=== PATIENT | female | born 1940 | race Caucasian/White ===

== ENCOUNTER 2017-02-25 20:51 | Inpatient (IN) | payer MEDICARE, OTHER ==
[~2017-02-25] VITALS: Ht 162.6 cm; Wt 92.5 kg
[2017-02-25] MEDS: 0.9% Sodium Chloride 1,000 ML IV SCH (04:30)
[~2017-02-25 20:51] MED LIST: Lactated Ringer's 1,000 ML IV ONE
[2017-02-25 21:59] VITALS: BP 110/47; PULSE 101; RESP 18; O2SAT 95
[2017-02-25] MEDS ORDERED: SYMINH INHALATION (22:36)
[2017-02-25] MEDS ORDERED: TRIA16.911 NS (22:36)
[2017-02-25] MEDS ORDERED: OMEP20CA11 PO (22:36)
[2017-02-25] MEDS ORDERED: CETI5TAB28 AD (22:36)
[2017-02-25] MEDS ORDERED: LOSA100T29 PO (22:36)
[2017-02-25] MEDS ORDERED: THYR30TA2 PO (22:36)
[2017-02-25] MEDS ORDERED: CHOL5000 PO (22:36)
[2017-02-25] MEDS ORDERED: ASPI-973 PO (22:36)
[2017-02-25] MEDS ORDERED: VITA150T PO (22:36)
[2017-02-25 22:45] VITALS: PULSE 94
[2017-02-25] MEDS ORDERED: Ondansetron 2 mg/mL 2 mL Inj IVPUSH PRN (23:15)
[2017-02-25] MEDS ORDERED: Alum-Mag Hydrox-Simeth 30 mL Suspension PO PRN (23:15)
[2017-02-25] MEDS ORDERED: Polyethylene Glycol (PEG) 17 Gm Powder PO PRN (23:15)
[2017-02-25] MEDS: Sodium Chloride LOK Flush 10 mL Syringe IVFLUSH SCH (23:24)
[2017-02-25] MEDS ORDERED: 0.9% Sodium Chloride 500 ML IV ONE (23:25)
[2017-02-25] MEDS ORDERED: Piperacillin-Tazo 3.375 Gm Inj 3.375 GM in Dextrose 5% Minibag Plus 50 ML IV ONE (23:30)
--- NOTE | 2017-02-25 23:31 | PCM.CONSUR ---
Subjective Date of Service: Feb 25, 2017 History of Present Illness Pt is a 76 y/o woman seen after transfr from [facility] in [place] for L UVJ stone in setting of presumed urosepsis. She had had sever L sided abdominal pain with anorexia and nausea w/o f/c. Was seen in the ER there afebrile initially with WBC 11, CT abd pelvis showed no other stones but a 3-4mm L UVJ region stone with prox hydroureteronephosis and some perinephric and ureteral stranding. Pt was to be discharged but began with shaking chills and fever o 102, as well as marked tachycardia. She does not remember this episode. Since arrival she is afebrile and oriented, normotensive with mildly variable tachycardia She was transfered for further treatment including likely L JJ stent placemnt. Zosyn ordered here Reason for Consultation I was asked by Dr Karimi for evaluation and treament recommendations regarding a 76 yo woman with L UVJ stone, hydronephosis and presumed urosepsis Allergy Allergies: Coded Allergies: phenobarbital (Verified Adverse Reaction, Intermediate, 02/25/17) "OPPOSITE REACTION- MAKES ME HYPER" TAPE (Verified Adverse Reaction, Unknown, 02/25/17) Medications Hypertension Medication: Yes Aspirin (Aspirin) 81 Mg Tablet 81 MG PO DAILY (Reported) Budesonide/Formoterol 160-4.5 mcg Inh (Symbicort 160-4.5 mcg Inh) 120 Puff Inhaler 1 PUFF INHALATION BID (Reported) Cetirizine (Cetirizine) 5 Mg Tablet 10 MG AD DAILY (Reported) Cholecalciferol (Vitamin D3) (Vitamin D3) 5,000 Unit Capsule 5,000 UNIT PO DAILYWL (Reported) Losartan Potassium (Losartan Potassium) 100 Mg Tablet 100 MG PO BID (Reported) Omeprazole (Omeprazole) 20 Mg Capsule.dr 20 MG PO BID (Reported) Thyroid,Pork ([place] Thyroid) 30 Mg Tablet 30 MG PO DAILY (Reported) Triamcinolone Acetonide (Triamcinolone Acetonide) 55 Mcg [place] 16.9 ML NS BID PRN PRN as needed (Reported) Vitamin B Complex & Vit C No.4 (Super B Complex) 150 Mg Tablet Unknown Dose PO DAILY (Reported) Last Taken: UNKNOWN on Unknown Date & Time Past Surgical History Surgeries: Yes (galbladder, hysterctomy) Patient/Family Past Surgical: Positive for:: Accept Blood Products?, Anesthesia Reactions (nausea), Denies:: Blood Transfusions Social History Hx Alcohol Use: Yes Hx Substance Use: No Hx Tobacco Use: No PMH HEENT History History of ENT Problems?: No HEENT History: Denies:: Abnormal Airway Cardiovascular History History of Heart Problems?: Yes Cardiovascular History: Positive for:: Edema Hypertension Denies:: Cardiac Surgery Chest Pain Congestive Heart Failure Heart Murmur Irregular Heartbeat Pacemaker Thrombophlebitis Respiratory History of Respiratory Problem: Yes Respiratory History: Positive for:: Asthma Dyspnea Pneumonia Denies:: COPD Chest Surgery Emphysema Hemoptysis Tuberculosis Neurological History Hx Neurologic Problems?: Yes Neurological History: Positive for:: CVA (TIA) Denies:: Alzheimer's Disease Dementia Dizziness Headaches Parkinson's Disease Seizures Gastrointestinal History HX of GI Problems?: Yes Gastrointestinal History: Positive for:: Gastroesphageal Reflux Heartburn Denies:: Diverticulitis Gastrointestinal Bleeding Hepatitis Hiatal Hernia Rectal Bleeding Other GI Pertinent History: galbladder removed Genitourinary History Hx of Gu Problems?: Yes Genitourinary History: Positive for: Kidney Stones (current) Denies: Urinary Tract Infection Female/Male History Reproductive History Female: Denies: Currently ? Endometriosis Pelvic Inflammatory DX Problems with Breasts? Musculoskeletal History Hx Musculoskeletal Problems?: Yes Musculoskeletal History: Positive for:: Back Injury (lower back pain, herniated disc in neck) Denies:: Joint Replacement Musculoskeletal Trauma Psycho Social History Hx of Psycho/Social Problems?: No Other History Other History: Positive for:: Hospitalization Thyroid Disease Denies:: Cancer Diabetes: No Social History Hx Alcohol Use: NoHx Substance Use: No Objective Exam Vital Signs & I/O Vital Sign- Last 8 Hours Date Time Temp Pulse Resp B/P Pulse Ox O2 Delivery O2 Flow Rate FiO2 02/25/17 23:12 Supplement Oxygen 02/25/17 21:59 36.7 101 18 110/47 95 Nasal Cannula 1.00 Lab & Micro Results as above Review of Systems: Constitutional: Negative, except as otherwise mentioned in the history above. Ophthalmologic: Negative, except as otherwise mentioned in the history above. Cardiovascular: Negative, except as otherwise mentioned in the history above. Respiratory: Negative, except as otherwise mentioned in the history above. Gastrointestinal: Negative, except as otherwise mentioned in the history above. Genitourinary: Negative, except as otherwise mentioned in the history above. Musculoskeletal: Negative, except as otherwise mentioned in the history above. Neurological: Negative, except as otherwise mentioned in the history above. Psychiatric: Negative, except as otherwise mentioned in the history above. Hematologic/Lymphatic: Negative, except as otherwise mentioned in the history above. Allergic/Immunologic: Negative, except as otherwise mentioned in the history above. H&P Surgical Exam Exam General: Alert, Cooperative, Mild Distress HEENT: Within normal limits & unremarkable (ncat, no scleral icterus, dry mucous membranes) Neck: Within normal limits & unremarkable (midline trachea, no scars) Respiratory: Clear to Auscultation (normal chest excursion, no audible ronchi or wheezes, no tachypnea, +NC 02) Cardiac: Other (reg rhythm, tachy mild, some dep edema, warm extremities) Abdomen: Soft (L sided TTP, no rebound, +cholecystectomy scars, no masses, obese) Breasts: Not Indicated Musculoskeletal: no gross limb defects Assessment & Plan Assessment L UVJ stone/prox HUN with pending cx from [facility], mild leukocytocis and presumed urosepsis Plan: Discussed with patient at length recommendations. risk/benefit of options discussed. stent discussed and recommended Small distal stone- MAY have passed, but given situation of brief decompensation at [facility] for presumed urosepsis would recommend stenting to ensure decompression of L renal unit if purulence or obstructed urine encountered, would re-cx from OR may expect urinary urgency/frequency with stent in place may expect some hematuria may have some flank discomfort with voiding due to reflux pressure from stent Pyridium up to tid may be helpful OAB medications such as Oxybutynin as well if needed Recommend medical supportive care with antibiotic choice per hospitalist service to cover at least presumed urine/bacterial source Stents remain at least 7-10 days to allow for passive ureteral dilation and UTI treatment before stone manipulation is undertaken for more proximal stones Findings at OR may dictate other plan if stone is seen in bladder (as passed) Will follow with you and arrange f/u plans prior to patient's d/c Sari Sylvester MD Feb 25, 2017 23:31
--- NOTE | 2017-02-25 23:39 | PCM.HPMED ---
Subjective Date of Service Feb 25, 2017 Primary Provider: Admitting Physician: Charmaine Karimi DO Primary Care Physician: Gregoria Olmstead MD Attending Physician: Charmaine Karimi DO Chief Complaint: Left lower quadrant pain History of Present Illness: Alexia Jade is 76-year-old female with past medical history significant for hypertension, hypothyroid, and asthma who was transferred from [facility] due for possible need for surgical intervention for left UVJ stone seen on CT. Patient presents to [facility] this morning due to constant, sharp pain in her left lower quadrant worse with movement. She states the pain came on suddenly and she could not reposition herself to alleviate the pain. The pain radiates to her groin but not to the back or right side. She denies any dysuria , hematuria, or difficulty voiding. She denies history of kidney stones. Prior to this morning she was in her usual state of health. She denies any recent fever, chills, nausea, vomiting, change in bowel habits, shortness of breath, chest pain, or headache. No recent antibiotic use. Patient last ate yesterday night. At [facility] medical management was initially attempted but when the patient spiked a fever 102F with a heart rate of 130 and O2 sats dropping to 80 % there was concern that she would need surgical intervention and she was transferred. Prior to arrival at [facility] she had blood cultures 2 drawn and antibiotics, Zosyn, given. Patient's white blood cell count at [facility] was 11.1. On presentation to [facility] vitals were temp 36.7, pulse 101, respiratory rate 18, blood pressure 110/47, satting 95% on 1 L nasal cannula. Patient is on her way to surgery for urethral stent placement by Dr. Sylvester. Review of Systems: Comprehensive review of systems was conducted with the patient and found to be negative except as noted above in HPI. Allergies Coded Allergies: phenobarbital (Verified Adverse Reaction, Intermediate, 02/25/17) "OPPOSITE REACTION- MAKES ME HYPER" TAPE (Verified Adverse Reaction, Unknown, 02/25/17) Home Medications Losartan 100 mg daily [place] Thyroid 30 mg daily Omeprazole 20 mg twice a day PMH Hypothyroidism Asthma GERD Hypertension History of TIA Surgical History Hysterectomy Cholecystectomy Tonsillectomy Appendectomy Family History Father - stroke Mother - CHF Social History Occupation: retired hairdresser Hx Alcohol Use: Yes (occasionally) Hx Substance Use: No Hx Tobacco Use: Yes Smoking Status: Former Smoker (quit over 30 years ago and only smoked one pack per week for 15 years) Years of Smokin Living Arrangement: with Family Exam Vital Signs Vital Sign - Last Date Time Temp Pulse Resp B/P Pulse Ox O2 Delivery O2 Flow Rate FiO2 02/25/17 23:12 Supplement Oxygen 02/25/17 21:59 36.7 101 18 110/47 95 1.00 Exam General: Mild distress, well-developed, well-nourished, appropriately interactive HEENT: Normocephalic, atraumatic. External ears without defect. Pupils equal, round, and reactive to light and accommodation. Anicteric sclerae, moist conjunctivae, and no lid lag. Oropharynx free of erythema and cobble stoning with moist mucosa. Neck: Supple with full range of motion. Cardiovascular: Regular rate and rhythm with no murmurs, rubs, or gallops appreciated Pulmonary: Clear to auscultation bilaterally with no crackles, wheezes, or rhonchi. Normal respiratory effort with no use of accessory muscles. Abdomen: Bowel tones present. Pain with palpation left lower quadrant but otherwise soft and nontender. Extremities: Ecchymotic area on her right forearm. Trace lower extremity edema. Skin: Normal temperature, turgor, and texture; no rash, ulcers, or subcutaneous nodules appreciated. Neurological: Cranial nerves grossly intact. Normal muscle strength, tone, and bulk. Reflexes, coordination, and sensory function within normal limits. No known gait impairment. Psychiatric: Normal mood and affect. Alert and oriented to person, place, and time. Lab and Diagnostics Microbiology 2 sets of blood cultures drawn at [facility] X-Rays, CTs and MRIs CT at [facility] showed left hydronephrosis and UVJ stone. Assessment & Plan Alexia Jade is 76-year-old female with past medical history significant for hypertension, hypothyroid, and asthma who was transferred from [facility] due for possible need for surgical intervention for left UVJ stone seen on CT. Hydronephrosis secondary to UVJ stone, present on admission, active. - Patient currently in surgery for urethral stent placement by Dr. Sylvester. - Zosyn given at [facility] and continued. - Morphine when necessary pain. - Repeat CBC, CMP, and UA at our facility pending. WBC at [facility] was 11.1. Sepsis, present on admission, active. - Criteria met at [facility] include: Temperature 100.2F, heart rate 1:30, and O2 sats 80% (Temperature greater than 38 her less than 36, heart rate is 90, respiratory rate greater than 20, PaCO2 less than 32, white blood cell count greater than 12,000 or less than 4000 or greater than 10% bands) - Source likely urological. - MAP 55-60 on presentation to [facility] and have improved with fluids. - Empiric antibiotics started including Zosyn. One dose given at [facility]. - Blood cultures obtained at [facility] prior to antibiotics. Urine cultures obtained and results pending. - Close hemodynamic monitoring. - Supplemental oxygen as needed. Stable chronic conditions Hypertension - Held home medication due to current hypotension - losartan 100 mg daily Asthma - Continue home regimen - Symbicort daily - Duonebs and albuterol when necessary Hypothyroidism - Continue home regimen - [place] Thyroid 30 mg GERD - Continue home regimen - omeprazole 20 mg twice a day PRN Medications - Acetaminophen as needed for mild pain/fever/headache - Bowel regimen as needed - Antiemetic as needed Patient is admitted under inpatient status with expected length of stay greater than 2 midnights due to severity of presenting symptoms, risk of adverse event, and complexity of treatment plan. Pain Evaluation: Adequate Pain Control GI Prophylaxis: Proton Pump Inhibitor VTE Prophylaxis: Sub-Q Heparin (Unfractionated) Resuscitation Status: CPR: Attempt Resuscitation (patient has living will - daughter has a copy) Attending Statement The patient was seen and examined together with house staff on 02/26/2017 and I agree with the history, exam and plan as outlined in the note above. ILAN LUA DO Feb 25, 2017 23:39 Charmaine Karimi DO Feb 26, 2017 05:05
--- NOTE | 2017-02-25 23:41 | NUR ---
Admit/ to OR Pt admitted to PCC room 2012. Admit and med rec completed via pt interview. Pt c/o 3/10 lower left quadrant pain which is tolerable with rest. Tele SR 90s. BP slightly hypotensive. 500 cc NS bolus ordered - bolus initiated however OR staff to room shortly after to bring pt to OR. Pt left floor @2335.
[2017-02-25 23:49] LABS: Mean Corpuscular Hemoglobin 29.8 pg (27.0-35.0); Platelet Count 85 bil/L (150-400)
[2017-02-25] MEDS ORDERED: Albuterol 2.5 mg/3 mL Inhalation Solution NEB PRN (23:50)
[2017-02-25] MEDS ORDERED: Albuterol-Ipratropium 3 mL Inhalation Solution NEB PRN (23:50)
[2017-02-26] VITALS (20 sets, daily range): BP systolic 90–145; BP diastolic 45–90; PULSE 60–124; RESP 13–24; O2SAT 93–100
[2017-02-26 00:23] LABS: BASOPHILS % (AUTO) 1 % (0-3); EOSINOPHILS % (AUTO) 2 % (0-5); MONOCYTES % (AUTO) 7 % (4-12); NEUTROPHILS % (AUTO) 80 % (40-74)
[2017-02-26 00:30] LABS: APPEARANCE,URINE CLEAR (CLEAR,HAZY); COLOR,URINE YELLOW (YELLOW); OCCULT BLOOD,URINE LARGE (NEGATIVE); UROBILINOGEN,URINE NORMAL (NORMAL)
[2017-02-26 00:34] LABS: Magnesium 1.4 mg/dL (1.6-2.6); Phosphorus 1.6 mg/dL (2.5-4.9); TROPONIN T 0.01 ug/L (0.0-0.011)
[2017-02-26] MEDS ORDERED: Lactated Ringer's 1,000 ML IV ONE (00:43)
--- NOTE | 2017-02-26 00:51 | PCM.SURGPO ---
Immediate Operative Note Date of Surgery: Feb 26, 2017 Pre Operative Diagnosis L ureteral stone, obstructing urosepsis Post Operative Diagnosis same Procedure L JJ stent placement Urine sent post de-obstruction for culture from bladder Surgeon and Rn Access Surgeon: Higinio Assistants: None Findings Contrast from [facility] still visible in obstructed urine- to level of bladder with UVJ stone (too small to see on fluoro) Stone palpable with advancement of stent/ureteral catheter Urine post deobstruction with debris c/w obstructing process Urine sent for culture after deobstruction Complications There were no periprocedural complications identified. Surgical Specimen Removed: Yes (urine for C&S post de-obstruction) Specimen sent to Pathology: No Surgical Specimen description: urine for c&s post deobstruction Anesthetic Administered: GA Grafts, Implants: Grafts-See Implant Record Output, Estimated Blood Loss: 10 Blood Admin during surgery: No Sari Sylvester MD Feb 26, 2017 00:51
[2017-02-26] MEDS ORDERED: Lactated Ringer's 500 ML IV PRN (01:16)
[2017-02-26] MEDS ORDERED: Lactated Ringer's 1,000 ML IV SCH (01:16)
[2017-02-26] MEDS ORDERED: Ondansetron 2 mg/mL 2 mL Inj IVPUSH PRN (01:20)
[2017-02-26] MEDS ORDERED: EPHEDrine Sulfate 50 mg/mL Inj IVPUSH PRN (01:20)
[2017-02-26] MEDS ORDERED: MetoCLOpramide 5 mg/mL 2 mL Inj IVPUSH PRN (01:20)
[2017-02-26] MEDS ORDERED: fentaNYL-PF 50 mCg/mL 2 mL Inj IVPUSH PRN (01:20)
[2017-02-26] MEDS ORDERED: Dexamethasone 4 mg/mL Inj IVPUSH PRN (01:20)
[2017-02-26] MEDS ORDERED: Phenylephrine 10,000 mCg/mL Inj IVPUSH PRN (01:20)
[2017-02-26] MEDS ORDERED: HYDROmorphone 1 mg/mL Inj IVPUSH PRN (01:20)
--- NOTE | 2017-02-26 01:20 | PCM.HPANE ---
Patient Data Date of Service: Feb 26, 2017 Surgeon Admitting Provider:Charmaine Karimi DO Attending Provider:Charmaine Karimi DO Primary Care Physician:Gregoria Olmstead MD Other Provider: Reason for Visit Kidney Stones, Sepsis Ht/WT & BMI Height (Feet): 5 Height (Inches): 4.00 Weight (Kilograms): 91.000 Body Mass Index 34.25 Allergies Coded Allergies: phenobarbital (Verified Adverse Reaction, Intermediate, 02/25/17) "OPPOSITE REACTION- MAKES ME HYPER" TAPE (Verified Adverse Reaction, Unknown, 02/25/17) Past Anesthesia History Anesthesia History: Positive for:: Anesthesia Reactions (nausea), Denies:: Abnormal Airway Additional Information: nausea Diabetes History Hx Diabetes?: No MRSA MRSA: No Medications Hypertension Medication: Yes Home Meds Incl Beta Zohra: No Reported Medications Triamcinolone Acetonide 55 Mcg [place]16.9 Ml NS BID PRN as needed 02/25/17 Aspirin 81 Mg [id number] Mg PO DAILY Ref 0 02/25/17 Budesonide/Formoterol 160-4.5 mcg Inh (Symbicort 160-4.5 mcg Inh)120 Puff Inhaler1 Puff INHALATION BID #1 INHALER Ref 0 02/25/17 Vitamin B Complex & Vit C No.4 (Super B Complex)150 Mg TabletUnknown Dose PO DAILY 02/25/17 Cholecalciferol (Vitamin D3) (Vitamin D3)5,000 Unit Capsule5,000 Unit PO DAILYWL 02/25/17 Omeprazole 20 Mg Capsule.dr20 Mg PO BID Ref 0 02/25/17 Losartan Potassium 100 Mg [id number] Mg PO BID 02/25/17 Cetirizine 5 Mg Buurev78 Mg AD DAILY Ref 0 02/25/17 Thyroid,Pork ([place] Thyroid)30 Mg [id number] Mg PO DAILY 02/25/17 History History of ENT Problems?: No HEENT History: Denies:: Abnormal Airway Denture Type: None Teeth Condition: Within Normal Limits Hx of Heart Problems?: Yes Cardiovascular History: Positive for:: Edema Hypertension Denies:: Cardiac Surgery Chest Pain Congestive Heart Failure Heart Murmur Irregular Heartbeat Pacemaker Thrombophlebitis Hx of Respiratory Problem?: Yes Respiratory History: Positive for:: Asthma Dyspnea Pneumonia Denies:: COPD Chest Surgery Emphysema Hemoptysis Tuberculosis Hx Neurologic Problems?: Yes Neurological History: Positive for:: CVA (TIA) Denies:: Alzheimer's Disease Dementia Dizziness Headaches Parkinson's Disease Seizures Hx of GI Problems?: Yes Other GI Pertinent History: galbladder removed Hx of Problems?: Yes Genitourinary History: Positive for:: Kidney Stones (current) Denies:: Urinary Tract Infection HX of Peritoneal Dialysis: No Female Hx: Denies:: Currently Endometriosis Pelvic Inflammatory Problems with Breasts? Hx Musculoskeletal Problems?: Yes Musculoskeletal History: Positive for:: Back Injury (lower back pain, herniated disc in neck) Other History/Comment cervical radiculopathy, without exacerbation with ROM Hx of Psycho/Social Problems?: No Hx Surgeries?: Yes (galbladder, hysterctomy) Other History: Positive for:: Hospitalization Thyroid Disease Denies:: Cancer History Blood Transfusions: Positive for:: Accept Blood Products? Denies:: Blood Transfusions Hx Diabetes: No Occupation: retired hairdresser Hx Alcohol Use: Yes (occasionally)Hx Substance Use: No Smoking Status: Former Smoker (quit over 30 years ago and only smoked one pack per week for 15 years) Stop/Bang Treated for Sleep Apnea?: No S-Snoring: Do You Snore Loudly: No T-Tired: feel tired, fatigued: No O-Obsered: Observed not breath: No P-Blood Pressure: treated: Yes B- Body Mass Index > 35 kg/m2: No A- Age over 50: Yes N- Neck Large Circumference: No G- Gender Male: No SHAWN Total Score: 1 SHAWN Risk Assessment: Low Risk, <3 Yes Risk Assessment Category Category 1A: Patient has history of documented sleep apnea, and HAS NOT received any narcotic, sedative or anesthesia administration during this stay. Category 1B: Patient has history of documented sleep apnea, and HAS received any narcotic , sedative or anesthesia administration during this stay Category 2: Patient has SUSPECTED Obstructive Sleep Apnea, and HAS received any narcotic , sedative or anesthesia administration during this stay. Category 3: Patient has SUSPECTED Obstructive Sleep Apnea and HAS NOT received narcotic, sedative or anesthesia administration during this stay. Category 4: Outpatient in Procedural Areas with known sleep apnea or who screen positive for High Risk via the STOP/BANG questionnaire. Exam Exam Vital Signs Vital Signs Date Time Temp Pulse Resp B/P Pulse Ox O2 Delivery O2 Flow Rate FiO2 02/26/17 01:10 115 15 101/55 100 Simple Mask 8 02/26/17 01:05 37.4 118 13 114/55 100 Simple Mask 8 02/25/17 23:12 Supplement Oxygen 02/25/17 21:59 36.7 101 18 110/47 95 Nasal Cannula 1.00 General Appearance: Alert, Cooperative, Mild Distress HEENT/AIRWAY: MP 2 Lungs: Clear to Auscultation Heart: Exam Unremarkable Meds/Labs/Diagnostics Admission Meds Current Medications Sodium Chloride 10 ml 10 ml ROSELYN IVFLUSH Last administered on 02/25/17 23:24; Start 02/26/17 at 00:30 Piperacillin Sod/ Tazobactam Sod 3.375 gm/Dextrose/ Water 50 ml @ 100 mls/hr ONCE ONCE IV Last administered on 02/26/17 01:11; Start 02/25/17 at 23:30; Stop 02/25/17 at 23:59; Status DC Sodium Chloride 500 ml @ 0 mls/hr Q0M ONCE IV Last administered on 02/25/17 23 :26; Start 02/25/17 at 23:25; Stop 02/25/17 at 23:29; Status DC Lactated Ringer's (Lr) 1,000 ml @ ud STK-MED ONCE IV Last administered on 02/26 00:43; Start 02/26/17 at 00:43; Stop 02/26/17 at 00:44; Status DC Labs Test 02/25/17 23:36 02/25/17 23:40 Urine Color Yellow (YELLOW) Urine Appearance Clear (CLEAR,HAZY) Urine pH 5.0 (5.0-8.0) Urine Specific [place] 1.010 (1.003-1.035) Urine Protein Tracemg/dL (NEG,TRACE) Urine Glucose (UA) Negativemg/dL (NEGATIVE) Urine Ketones Negativemg/dL (NEGATIVE) Urine Occult Blood Large (NEGATIVE) Urine Nitrite Negative (NEGATIVE) Urine Bilirubin Negative (NEGATIVE) Urine Urobilinogen Normalmg/dL (NORMAL) Urine Leukocyte Esterase Negative (NEGATIVE) Urine RBC 3-10/hpf (0-2) Urine WBC 0-5/hpf (0-5) Urine Epithelial Cells Few/hpf (NONE-MOD) Urine Crystals None seen (NONE SEEN) Urine Bacteria Few/hpf (NONE-FEW) Urine Hyaline Casts None/lpf (NONE) Urine Granular Casts None seen (NONE SEEN) Urine Waxy Casts None seen (NONE SEEN) Urine Red Blood Cell Casts None seen (NONE SEEN) Urine White Blood Cell Casts None seen (NONE SEEN) Urine Mucus None seen (None Seen) Urine Trichomonas None seen (NONE SEEN) Urine Yeast None (NONE SEEN) Urinalysis Comment None Urine Culture Reflexed Not indicated White Blood Count 19.0th/mm3 (3.8-10.1) Red Blood Count 4.49mil/mm3 (3.90-5.20) Hemoglobin 13.4g/dL (12.0-15.6) Hematocrit 40.4% (35.0-46.0) Mean Corpuscular Volume 90.0fL (81-100) Mean Corpuscular Hemoglobin 29.8pg (27.0-35.0) Mean Corpuscular Hemoglobin Concent 33.2% (32.0-37.0) Red Cell Distribution Width 13.8% (12.3-15.4) Platelet Count 85bil/L (150-400) Neutrophils (%) (Auto) 80% (40-74) Lymphocytes (%) (Auto) 5% (14-46) Monocytes (%) (Auto) 7% (4-12) Eosinophils (%) (Auto) 2% (0-5) Basophils (%) (Auto) 1% (0-3) Band Neutrophils % 5% (1-5) Sodium Level 139mEq/L (134-144) Potassium Level 3.6mEq/L (3.5-5.2) Chloride Level 102mEq/L (97-108) Carbon Dioxide Level 17mmol/L (18-29) Blood Urea Nitrogen 22mg/dL (8-27) Creatinine 1.42mg/dL (0.57-1.00) Estimat Glomerular Filtration Rate 52mL/min (>59) Glucose Level 136mg/dL (60-99) Lactic Acid Level 3.9mmol/L (0.4-2.0) Calcium Level 8.1mg/dL (8.5-10.1) Phosphorus Level 1.6mg/dL (2.5-4.9) Magnesium Level 1.4mg/dL (1.6-2.6) Total Bilirubin 0.9mg/dL (0.0-1.2) Aspartate Amino Transf (AST/SGOT) 37U/L (0-50) Alanine Aminotransferase (ALT/SGPT) 32U/L (0-32) Alkaline Phosphatase 56U/L (25-165) Troponin T 0.010ug/L (0.0-0.011) Total Protein 5.7g/dL (6.4-8.4) Albumin 3.1g/dL (3.4-5.0) Procalcitonin 72.85ng/mL (0.00-0.08) Plan Impression Patient chart reviewed, patient interviewed and anesthestic plan with risks, benefits, and alternatives discussed, and informed consent obtained. ASA Physical Status: ASA3 Plus Emergency Anesthetic Support Modalities: [place] Scope Anesthetic Plan: GA Bene/Risks/Altern/Consents: Yes HP Complete Prior to Induction: Yes Du Solis MD Feb 26, 2017 01:19
--- NOTE | 2017-02-26 01:28 | PCM.ANEP1 ---
Post Anesthesia PACU Phase 1 Assessment Vital Signs Vital Signs Date Time Temp Pulse Resp B/P Pulse Ox O2 Delivery O2 Flow Rate FiO2 02/26/17 01:10 115 15 101/55 100 Simple Mask 8 02/26/17 01:05 37.4 118 13 114/55 100 Simple Mask 8 02/25/17 23:12 Supplement Oxygen 02/25/17 21:59 36.7 101 18 110/47 95 Nasal Cannula 1.00 Anesthetic Administered: GA Level of Alertness: Awake, talking Pain: No Nausea or Vomiting: No CV Function & Hydration Stable: Yes Airway Device: Oxygen Delivery: Room Air Lungs: Clear to Auscultation PACU Phase 2 Assessment Complications: No Follow up Care: N/A Patient Instructions Provided: N/A Du Solis MD Feb 26, 2017 01:28
[2017-02-26] MEDS ORDERED: 0.9% Sodium Chloride 1,000 ML IV ONE ×3 (02:10→04:55)
[2017-02-26] MEDS: 0.9% Sodium Chloride 1,000 ML IV SCH ×4 (02:18→20:17)
[2017-02-26] MEDS: Heparin 5,000 Unit/mL Inj SUBQ SCH ×3 (02:19→16:05)
[2017-02-26 02:35] LABS: Mean Corpuscular Hemoglobin 29.7 pg (27.0-35.0); Mean Corpuscular Volume 90.5 fL (81-100); Platelet Count 88 bil/L (150-400)
[2017-02-26 02:59] LABS: Magnesium 1.3 mg/dL (1.6-2.6); Phosphorus 2.4 mg/dL (2.5-4.9)
--- NOTE | 2017-02-26 02:59 | NUR ---
Return from OR. Pt back to [facility] room 2013. Pt drowsy but oriented and appropriated. Tele SR- Stach. BP noted to be hypotensive 90s/50s. pt denies any pain. Grider draining light red urine Addendum: 02/26/17 at 0305 by HEATHER SHELLEY RN Dr. Martin notified about pts return to floor. Order received for 1 L bolus of NS. Clarified Lactic Acid ordered- Lactic ordered and drawn stat- awaiting results. MD states okay to advance diet as tolerated. Diet set for clears for breakfast. Addendum: 02/26/17 at 0443 by HEATHER SHELLEY RN Lactic came back @ 4.7. Pt still with BPs in the 90/50s after the [address] Martin updated. Order received for 2nd L Bolus. - Lactic redrawn- awaiting results at this time. BP 103/49 post 2nd bolus. K and mag also noted to be low- Md aware- mag and K riders infusing as ordered. Addendum: 02/26/17 at 0638 by HEATHER SHELLEY RN repeat lactic 4.2, Dr. Martin aware- 3rd liter NS bolus ordered and given. Lactic redraw ordered for 629
[2017-02-26 03:14] LABS: BASOPHILS % (AUTO) 0 % (0-3); EOSINOPHILS % (AUTO) 5 % (0-5); MONOCYTES % (AUTO) 3 % (4-12)
[2017-02-26 03:15] LABS: NEUTROPHILS % (AUTO) 51 % (40-74)
[2017-02-26] MEDS ORDERED: Magnesium Sulf 2 Gm/50mL Water 2 GM in IV Premix 1 EACH IV ONE (03:15)
[2017-02-26] MEDS ORDERED: Potassium Phos (mEq) Inj 40 MEQ in Dextrose 5% 250 ML IV ONE (03:15)
[2017-02-26] MEDS: Pantoprazole 20 mg ER24 Tablet PO SCH ×2 (07:52→16:05)
[2017-02-26] MEDS: Sodium Chloride LOK Flush 10 mL Syringe IVFLUSH SCH ×2 (07:53→16:04)
[2017-02-26] MEDS: Piperacillin-Tazo 3.375 Gm Inj 3.375 GM in Dextrose 5% Minibag Plus 50 ML IV SCH ×2 (07:53→16:04)
[2017-02-26] MEDS: Fluticasone-Salmererol 250-50 Inhaler INHALATION SCH ×2 (07:53→20:17)
[2017-02-26] MEDS ORDERED: Propofol 10,000 mCg/mL 20 mL Inj ONE (09:32)
[2017-02-26] MEDS ORDERED: fentaNYL-PF 50 mCg/mL 2 mL Inj ONE (09:32)
[2017-02-26] MEDS ORDERED: Dexamethasone 4 mg/mL Inj ONE (09:32)
[2017-02-26] MEDS ORDERED: Succinylcholine Chloride 20 mg/mL 5 mL Inj ONE (09:32)
[2017-02-26] MEDS ORDERED: Ondansetron 2 mg/mL 2 mL Inj ONE (09:32)
[2017-02-26] MEDS ORDERED: Albuterol HFA 200 Puff Inhaler (Vent Pts Only) ONE (09:32)
[2017-02-26] MEDS ORDERED: Ketamine 10 mg/mL 20 mL Inj ONE (09:32)
[2017-02-26] MEDS ORDERED: EPHEDrine/NS 5 mg/mL 5 mL Syringe ONE (09:32)
[2017-02-26] MEDS ORDERED: Phenylephrine/NS 100 mCg/mL 10 mL Syringe IVPUSH ONE (09:32)
[2017-02-26] MEDS ORDERED: Potassium Phos (mEq) Inj 40 MEQ in Dextrose 5% 500 ML IV ONE (10:25)
[2017-02-26] MEDS ORDERED: MeTOProlol 1 mg/mL 5 mL Inj IVPUSH ONE (10:25)
[2017-02-26] MEDS ORDERED: Magnesium Sulf 4 Gm/100 mL H2O 4 GM in IV Premix 1 EACH IV ONE (10:25)
--- NOTE | 2017-02-26 10:42 | NUR ---
Social Work: Initial Assessment/Multidisciplinary Rounds D: Per EMR review, pt is a 76 year old female admitted for Kidney Stones, Sepsis. Patient is Medicare with [employer] Out of State supplement; pt states she has no LTC or VA benefits. NOK is Durga Jade, . PCP is Gregoria Olmstead MD. Advanced directives info provided. Readmit score not entered at this time. Pt discussed in Multidisciplinary rounds. Capacity for self care discussed; no concerns or needs at this time. SLITTER SCORER CUT OFF OPERATOR met with the patient at bedside. Social work/dcp role explained, contact information and discharge planning checklist provided. See initial assessment. Pt lives in [facility] with her spouse in a single story home with 1 step to enter. patient has never had HH or skilled rehab. Pt uses no DME, is I with all ADLs and continues to drive. Patient identifies no concerns about discharge but is receptive to d/c planning if needs arise. Pt's spouse will transport. A: Pt who is I at baseline. P: Anticipate pt to discharge home via POV once medically stable; SLITTER SCORER CUT OFF OPERATOR to continue to follow to assess for unmet needs. BELINDA Nowak
--- NOTE | 2017-02-26 15:28 | PCM.PNMED ---
Subjective Date of Service Feb 26, 2017 Subjective Alexia Jade is 76-year-old female with past medical history significant for hypertension, hypothyroid, and asthma who was transferred from [facility] due for possible need for surgical intervention for left UVJ stone seen on CT. Patient was seen and examined by me. This morning, she states that she feels lethargic overall but she denies abdominal pain. She notes that she has a cough and she remains SOB but associates that with her asthma. She continues to receive fluid resuscitation at 150 cc/hr. Later in the morning, patient went into Atrial Fibrillation with rate in 110s-140s. She was given metoprolol 2.5 mg IV and rate was better controlled. She later converted back to normal sinus rhythm. Overnight, Patient returned from the OR and was drowsy but oriented and appropriated. She was noted to be hypotensive 90s/50s and her Mark was draining light red urine. There were no other acute events overnight. Exam Vital Signs Vital Sign - Last Date Time Temp Pulse Resp B/P Pulse Ox O2 Delivery O2 Flow Rate FiO2 02/26/17 03:16 95 96/52 02/26/17 02:13 36.7 17 93 Nasal Cannula 2.00 Intake and Output 02/25/17 02/25/17 02/26/17 Cumulative From/Thru 15:00 23:00 07:00 02/25/17 01:49 - 02/26/17 04:25 Intake Total 2566 ml 2716 ml Output Total 460 ml 460 ml Balance 2106 ml 2256 ml Intake Oral 50 ml 50 ml IV Total 2516 ml 2666 ml Output Urine Total 450 ml 450 ml Estimated Blood Loss 10 ml 10 ml # Bowel Movements 0 0 Exam General: Patient is lying comfortably on bed, AAOX3, not in acute distress, cooperative . HEENT: head normocephalic and atraumatic, PERRLA, EOMI, no scleral icterus, noninjected conjunctiva, dry mucous membranes Neck: neck supple, non-tender, no lymphadenopathy, trachea midline, no JVD CV: regular rate and rhythm, s1 and s2 heard, radial pulses 2+ and equal bilaterally, no rubs, murmurs or gallops, no edema Lungs: Clear to auscultation bilaterally, no wheezes, rales or rhonchi, no increased work of breathing Abdomen: normoactive bowel sounds on 4Q, soft, non-distended, non-tender to palpation, no organomegally : patient has a mark draining pink urine Skin: warm and dry Musculoskeletal: pulp press tender strength of UE reduced bilaterally, full ROM bilaterally Neuro: Grossly neurologically intact, cranial nerves II through XII intact, no dyskinesia, dysmetria, or dysdiadochokinesia noted, sensation intact in extremities Psych: Normal mood and affect IVs and Medications IV Fluids NS at 150 cc/hr Medications Reviewed: Medications were reviewed in detail Lab and Diagnostics Laboratory Tests Test 02/25/17 23:36 02/25/17 23:40 02/26/17 02:28 02/26/17 04:15 Urine Color Yellow (YELLOW) Urine Appearance Clear (CLEAR,HAZY) Urine pH 5.0 (5.0-8.0) Urine Specific [place] 1.010 (1.003-1.035) Urine Protein Tracemg/dL (NEG,TRACE) Urine Glucose (UA) Negativemg/dL (NEGATIVE) Urine Ketones Negativemg/dL (NEGATIVE) Urine Occult Blood Large (NEGATIVE) Urine Nitrite Negative (NEGATIVE) Urine Bilirubin Negative (NEGATIVE) Urine Urobilinogen Normalmg/dL (NORMAL) Urine Leukocyte Esterase Negative (NEGATIVE) Urine RBC 3-10/hpf (0-2) Urine WBC 0-5/hpf (0-5) Urine Epithelial Cells Few/hpf (NONE-MOD) Urine Crystals None seen (NONE SEEN) Urine Bacteria Few/hpf (NONE-FEW) Urine Hyaline Casts None/lpf (NONE) Urine Granular Casts None seen (NONE SEEN) Urine Waxy Casts None seen (NONE SEEN) Urine Red Blood Cell Casts None seen (NONE SEEN) Urine White Blood Cell Casts None seen (NONE SEEN) Urine Mucus None seen (None Seen) Urine Trichomonas None seen (NONE SEEN) Urine Yeast None (NONE SEEN) Urinalysis Comment None Urine Culture Reflexed Not indicated White Blood Count 19.0th/mm3 (3.8-10.1) 21.6th/mm3 (3.8-10.1) Red Blood Count 4.49mil/mm3 (3.90-5.20) 4.21mil/mm3 (3.90-5.20) Hemoglobin 13.4g/dL (12.0-15.6) 12.5g/dL (12.0-15.6) Hematocrit 40.4% (35.0-46.0) 38.1% (35.0-46.0) Mean Corpuscular Volume 90.0fL (81-100) 90.5fL (81-100) Mean Corpuscular Hemoglobin 29.8pg (27.0-35.0) 29.7pg (27.0-35.0) Mean Corpuscular Hemoglobin Concent 33.2% (32.0-37.0) 32.8% (32.0-37.0) Red Cell Distribution Width 13.8% (12.3-15.4) 13.9% (12.3-15.4) Platelet Count 85bil/L (150-400) 88bil/L (150-400) Neutrophils (%) (Auto) 80% (40-74) 51% (40-74) Lymphocytes (%) (Auto) 5% (14-46) 40% (14-46) Monocytes (%) (Auto) 7% (4-12) 3% (4-12) Eosinophils (%) (Auto) 2% (0-5) 5% (0-5) Basophils (%) (Auto) 1% (0-3) 0% (0-3) Band Neutrophils % 5% (1-5) Sodium Level 139mEq/L (134-144) 139mEq/L (134-144) Potassium Level 3.6mEq/L (3.5-5.2) 3.2mEq/L (3.5-5.2) Chloride Level 102mEq/L (97-108) 102mEq/L (97-108) Carbon Dioxide Level 17mmol/L (18-29) 19mmol/L (18-29) Blood Urea Nitrogen 22mg/dL (8-27) 23mg/dL (8-27) Creatinine 1.42mg/dL (0.57-1.00) 1.62mg/dL (0.57-1.00) Estimat Glomerular Filtration Rate 52mL/min (>59) 44mL/min (>59) Glucose Level 136mg/dL (60-99) 180mg/dL (60-99) Lactic Acid Level 3.9mmol/L (0.4-2.0) 4.7mmol/L (0.4-2.0) 4.2mmol/L (0.4-2.0) Calcium Level 8.1mg/dL (8.5-10.1) 7.7mg/dL (8.5-10.1) Phosphorus Level 1.6mg/dL (2.5-4.9) 2.4mg/dL (2.5-4.9) Magnesium Level 1.4mg/dL (1.6-2.6) 1.3mg/dL (1.6-2.6) Total Bilirubin 0.9mg/dL (0.0-1.2) 0.7mg/dL (0.0-1.2) Aspartate Amino Transf (AST/SGOT) 37U/L (0-50) 32U/L (0-50) Alanine Aminotransferase (ALT/SGPT) 32U/L (0-32) 28U/L (0-32) Alkaline Phosphatase 56U/L (25-165) 48U/L (25-165) Troponin T 0.010ug/L (0.0-0.011) Total Protein 5.7g/dL (6.4-8.4) 5.3g/dL (6.4-8.4) Albumin 3.1g/dL (3.4-5.0) 3.0g/dL (3.4-5.0) Procalcitonin 72.85ng/mL (0.00-0.08) Metamyelocytes % 1% (0-0) Microbiology 02/26/17 Urine Culture, Received Pending Result Diagram: 02/26/1722702/26/17227 Microbiology 2 sets of blood cultures drawn at [facility]. Blood cultures grew E. Coli X-Rays, CTs and MRIs CT at [facility] showed left hydronephrosis and UVJ stone. Assessment & Plan Alexia Jade is 76-year-old female with past medical history significant for hypertension, hypothyroid, and asthma who was transferred from [facility] due for possible need for surgical intervention for left UVJ stone seen on CT. Hydronephrosis secondary to UVJ stone, present on admission, active. - Patient underwent urethral stent placement by Dr. Sylvester on 02/25/17 - Zosyn given at [facility] and continued. - Morphine when necessary pain. - Repeated CBC, CMP, and UA . WBC at [facility] was 11.1. Sepsis, present on admission, active. - Criteria met at [facility] include: Temperature 100.2F, heart rate 1:30, and O2 sats 80% (Temperature greater than 38 her less than 36, heart rate is 90, respiratory rate greater than 20, PaCO2 less than 32, white blood cell count greater than 12,000 or less than 4000 or greater than 10% bands) - Source likely urological. - MAP 55-60 on presentation to [facility] and have improved with fluids. - Empiric antibiotics started including Zosyn. One dose given at [facility]. -Continue Zosyn - Blood cultures obtained at [facility] prior to antibiotics. Blood Cultures grew E. Coli -Re-ordered blood cultures while admitted at [facility] -Urine cultures obtained and results pending. - Close hemodynamic monitoring. - Supplemental oxygen as needed. New-onset Paroxysmal Atrial Fibrillation, acute, resolved. -Patient went into A. Fib with rates in 110s-140s -Given metoprolol 2.5 mg IV with improvement in rate. Patient's blood pressure remains tenuous -TSH low normal at 0.457, Free T4 normal at 0.99 -CHADS VASC score 6. No indication for anticoagulation at this time because Atrial Fibrillation was transient Lactic Acidosis, present on admission, ongoing. -Lactic Acid on Admit was 3.9 -Continue to trend Lactic acid q2 hrs until normalized -Patient is receiving NS at 150 cc/hr Electrolyte abnormalities, present on admission, under investigation. -Potassium, Magnesium and phosphorus were low -Replete electrolytes and recheck Acute kidney Injury, present on admission, ongoing. -likely secondary to kidney stone VS urosepsis -BUN/Cr 23/1.62 -patient on fluid hydration -avoid nephrotoxic drugs Stable chronic conditions Hypertension - Held home medication due to current hypotension - losartan 100 mg daily Asthma - Continue home regimen - Symbicort daily - Duonebs and albuterol when necessary -Ordered CXR and EKG for SOB Hypothyroidism - Continue home regimen - Stitzer Thyroid 30 mg -TSH low normal at 0.457, Free T4 normal at 0.99 GERD - Continue home regimen - omeprazole 20 mg twice a day PRN Medications - Acetaminophen as needed for mild pain/fever/headache - Bowel regimen as needed - Antiemetic as needed Pain Evaluation: Adequate Pain Control GI Prophylaxis: Proton Pump Inhibitor VTE Prophylaxis: Sub-Q Heparin (Unfractionated) VTE Mechanical Devices: Intermittant Pneumatic CD Resuscitation Status: CPR: Attempt Resuscitation (patient has living will - daughter has a copy) Attending Statement The patient was seen and examined together with Dr. Merino on 02/26/17 and I agree with the history, exam and plan as outlined in the note above. Aviva Merino DO Feb 26, 2017 06:53 Penny Mclaughlin DO Feb 27, 2017 15:18
[2017-02-26 15:46] LABS: Magnesium 1.9 mg/dL (1.6-2.6)
--- NOTE | 2017-02-26 16:20 | DRSVH ---
PROCEDURE: X-RAY CHEST ONE VIEW, PORTABLE ([id number]) INDICATIONS: SHORTNESS OF BREATH TECHNIQUE: One view of the chest was acquired. COMPARISON: None. FINDINGS: Surgical changes and devices: Cholecystectomy clips are seen. Lungs and pleura: On this semiupright portable chest examination, no large pneumothorax or large ple ural effusions are seen. No focal infiltrates are seen. Low lung volumes are noted. This causes a c rowded appearance to the lung markings and limits evaluation. Mediastinum: Mediastinal contours appear normal. Heart size is normal. Bones and chest wall: No suspicious bony lesions. Age-appropriate bony degenerative changes are see n. Overlying soft tissues appear unremarkable. IMPRESSION: Limited portable chest examination, without a significant cardiopulmonary abnormality id entified. Dictated by: Giuliano Conner M.D. on 02/26/2017 at 16:16 Approved by: Giuliano Conner M.D. on 02/26/2017 at 16:17
[2017-02-26] MEDS: Albuterol-Ipratropium 3 mL Inhalation Solution NEB SCH ×2 (17:32→21:36)
--- NOTE | 2017-02-26 17:37 | PCM.PNSURG ---
Subjective Date of Service: Feb 26, 2017 Date of Service: Feb 26, 2017 Visit Information: Reason for Visit Kidney Stones, Sepsis Surgery/Surgery Date Post-Op Day # 1 s/p L JJ stent Date of Admission: Feb 25, 2017 at 21:58 Hospital Day # 2 Subjective: Pt remains tachycardic but HD dipti fair UOP after stent placed last night for obstructed pyelo on L. Cx Pending Postop General: No Chest Pain, Other (malaise, weakness) Gastrointestinal: No N/V Pain Management: Other (per primary team) Neurological: Weakness Postop Activity: Other (in bed) Objective Vital Sign- Last 8 Hours Date Time Temp Pulse Resp B/P Pulse Ox O2 Delivery O2 Flow Rate FiO2 02/26/17 16:35 37.0 92 17 104/52 93 Room Air 02/26/17 12:11 36.9 103 16 104/55 95 Room Air 02/26/17 10:47 124 Intake and Output- Last 8 Hour 02/26/17 Cumulative From/Thru 07:00 02/25/17 01:49 - 02/26/17 04:25 Intake Total 2566 ml 2716 ml Output Total 460 ml 460 ml Balance 2106 ml 2256 ml Intake Oral 50 ml 50 ml IV Total 2516 ml 2666 ml Output Urine Total 450 ml 450 ml Estimated Blood Loss 10 ml 10 ml # Bowel Movements 0 0 General: Alert, Cooperative, Mild Distress Neck: Supple (midline trachea, no masses, ) Lungs: Normal Air Movement (no audible ronchi or wheezes) Heart: Other (sinus tachy) Abdomen: Benign (obese, soft) Extremities: Edema Localized Neuro: Grossly Neurologically Intact Catheters: Urethral 2 Way Grider Result Diagram: 02/26/17 0228 02/26/17 1519 Lab & Micro Results: WBC to 21, Lactic Acid to >3 now declining cx pending had gotten Rocephin at [facility] and 2nd dose in OR some time after midnight jey 02/26 Assessment & Plan Impression Small distal stone- was still present and obstructing with contrast from [facility] still visible under fluoro before stent placement Now decompressed effectively with JJ stent- will stay until after d/c until time of stone treatment Urine re-cx from OR after deobstruction was sent but pt had had ceftriaxone at [facility] and a 2nd dose around time of stent placement after midnight early 02/26 Problems: Plan may expect urinary urgency/frequency with stent in place may expect some hematuria may have some flank discomfort with voiding due to reflux pressure from stent Pyridium up to tid may be helpful OAB medications such as Oxybutynin as well if needed Recommend medical supportive care with antibiotic choice per hospitalist service to cover at least presumed urine/bacterial source Stents remain at least 7-10 days to allow for passive ureteral dilation and UTI treatment before stone manipulation is undertaken for more proximal stones Have reviewed above with patient once again this evening Will follow with you and arrange f/u plans prior to patient's d/c VTE Prophylaxis: Sub-Q Heparin (Unfractionated) Resuscitation Status: CPR: Attempt Resuscitation (patient has living will - daughter has a copy) Sari Sylvester MD Feb 26, 2017 17:37
[2017-02-27] VITALS (14 sets, daily range): BP systolic 117–157; BP diastolic 60–90; PULSE 60–139; RESP 18–24; O2SAT 92–96
[2017-02-27] MEDS: Sodium Chloride LOK Flush 10 mL Syringe IVFLUSH SCH ×3 (00:30→16:30)
[2017-02-27] MEDS: Heparin 5,000 Unit/mL Inj SUBQ SCH ×4 (01:45→23:33)
[2017-02-27] MEDS: Piperacillin-Tazo 3.375 Gm Inj 3.375 GM in Dextrose 5% Minibag Plus 50 ML IV SCH ×4 (01:45→23:33)
[2017-02-27] MEDS: Albuterol-Ipratropium 3 mL Inhalation Solution NEB SCH ×4 (02:30→20:59)
[2017-02-27 03:27] LABS: Mean Corpuscular Hemoglobin 29.6 pg (27.0-35.0); Mean Corpuscular Volume 91.7 fL (81-100); Platelet Count 69 bil/L (150-400)
[2017-02-27] MEDS: 0.9% Sodium Chloride 1,000 ML IV SCH ×3 (03:49→17:36)
--- NOTE | 2017-02-27 04:30 | NUR ---
GI/ Grider Cath in situ. Pt C/O Abd discomfort. Abd soft. Last BM 2 days ago. Pt up walking on hallway. Pt had XL BM. Pt stated she feels better. No overt complications noted.
[2017-02-27 04:34] LABS: BASOPHILS % (AUTO) 0 % (0-3); EOSINOPHILS % (AUTO) 0 % (0-5); MONOCYTES % (AUTO) 1 % (4-12); NEUTROPHILS % (AUTO) 80 % (40-74)
[2017-02-27 04:46] LABS: Magnesium 1.9 mg/dL (1.6-2.6); Phosphorus 2.9 mg/dL (2.5-4.9)
[2017-02-27] MEDS: Fluticasone-Salmererol 250-50 Inhaler INHALATION SCH ×2 (07:53→19:42)
--- NOTE | 2017-02-27 15:18 | PCM.PNMED ---
Subjective Date of Service Feb 27, 2017 Subjective Patient was seen and examined by me today. Patient notes that her abdominal muscles are still tight and sore with coughing. However, she believes that her shortness of breath has improved. She has mild left lower quadrant pain that is much better compared to when she initially presented to the hospital. She continues to have hematuria. She denies headaches, visual changes, chest pain, palpitations, nausea, vomiting, bowel changes and dysuria. This morning, patient had a large bowel movement and stated she felt better afterwards. Later in the afternoon, patient went into Atrial Fibrillation again with rates in 130s -140s. There were no acute events overnight.Per tele, she was in sinus rhythm with HR in 90s-120s. Exam Vital Signs Vital Sign - Last Date Time Temp Pulse Resp B/P Pulse Ox O2 Delivery O2 Flow Rate FiO2 02/27/17 05:52 113 02/27/17 04:03 37.3 23 134/60 93 Room Air 02/26/17 02:13 2.00 Intake and Output 02/26/17 02/26/17 02/27/17 Cumulative From/Thru 15:00 23:00 07:00 02/25/17 01:49 - 02/27/17 05:23 Intake Total 3511 ml 1586 ml 7813 ml Output Total 1300 ml 1100 ml 2860 ml Balance 2211 ml 486 ml 4953 ml Intake Oral 840 ml 200 ml 1090 ml IV Total 2671 ml 1386 ml 6723 ml Output Urine Total 1300 ml 1100 ml 2850 ml Estimated Blood Loss 10 ml # Bowel Movements 1 1 Exam General: Patient is lying comfortably on bed, AAOX3, not in acute distress, cooperative . HEENT: head normocephalic and atraumatic, PERRLA, EOMI, no scleral icterus, noninjected conjunctiva Neck: neck supple, non-tender, no lymphadenopathy, trachea midline, no JVD CV: regular rate and rhythm, s1 and s2 heard, radial pulses 2+ and equal bilaterally, no rubs, murmurs or gallops, no edema Lungs: Clear to auscultation bilaterally, no wheezes, rales or rhonchi, no increased work of breathing Abdomen: normoactive bowel sounds on 4Q, soft, non-distended, non-tender to palpation, no organomegally : patient has a mark, positive gross hematuria Skin: warm and dry Musculoskeletal: reliner strength of UE reduced bilaterally, full ROM bilaterally Neuro: Grossly neurologically intact, cranial nerves II through XII intact, no dyskinesia, dysmetria, or dysdiadochokinesia noted, sensation intact in extremities Psych: Normal mood and affect IVs and Medications IV Fluids NS at 80 mls/hr Medications Reviewed: Medications were reviewed in detail Lab and Diagnostics Laboratory Tests Test 02/26/17 07:48 02/26/17 10:34 02/26/17 15:19 02/26/17 16:56 Lactic Acid Level 3.8mmol/L (0.4-2.0) 4.3mmol/L (0.4-2.0) 3.2mmol/L (0.4-2.0) 2.4mmol/L (0.4-2.0) Thyroid Stimulating Hormone (TSH) 0.457uIU/mL (0.450-4.500) Free Thyroxine 0.99ng/dL (0.82-1.77) Free Triiodothyronine 1.8pg/mL (2.0-4.4) Potassium Level 4.1mEq/L (3.5-5.2) Magnesium Level 1.9mg/dL (1.6-2.6) Test 02/26/17 18:42 02/26/17 20:47 02/27/17 03:15 Lactic Acid Level 2.5mmol/L (0.4-2.0) 2.0mmol/L (0.4-2.0) 1.6mmol/L (0.4-2.0) White Blood Count 17.2th/mm3 (3.8-10.1) Red Blood Count 3.72mil/mm3 (3.90-5.20) Hemoglobin 11.0g/dL (12.0-15.6) Hematocrit 34.1% (35.0-46.0) Mean Corpuscular Volume 91.7fL (81-100) Mean Corpuscular Hemoglobin 29.6pg (27.0-35.0) Mean Corpuscular Hemoglobin Concent 32.3% (32.0-37.0) Red Cell Distribution Width 14.5% (12.3-15.4) Platelet Count 69bil/L (150-400) Neutrophils (%) (Auto) 80% (40-74) Lymphocytes (%) (Auto) 6% (14-46) Monocytes (%) (Auto) 1% (4-12) Eosinophils (%) (Auto) 0% (0-5) Basophils (%) (Auto) 0% (0-3) Band Neutrophils % 10% (1-5) Myelocytes % 3% (0-0) Sodium Level 142mEq/L (134-144) Potassium Level 3.9mEq/L (3.5-5.2) Chloride Level 110mEq/L (97-108) Carbon Dioxide Level 21mmol/L (18-29) Blood Urea Nitrogen 22mg/dL (8-27) Creatinine 1.12mg/dL (0.57-1.00) Estimat Glomerular Filtration Rate 68mL/min (>59) Glucose Level 107mg/dL (60-99) Calcium Level 7.2mg/dL (8.5-10.1) Phosphorus Level 2.9mg/dL (2.5-4.9) Magnesium Level 1.9mg/dL (1.6-2.6) Total Bilirubin 0.4mg/dL (0.0-1.2) Aspartate Amino Transf (AST/SGOT) 22U/L (0-50) Alanine Aminotransferase (ALT/SGPT) 22U/L (0-32) Alkaline Phosphatase 41U/L (25-165) Total Protein 5.4g/dL (6.4-8.4) Albumin 2.7g/dL (3.4-5.0) Procalcitonin 31.52ng/mL (0.00-0.08) Microbiology 02/26/17 Blood Culture, Received Pending 02/26/17 Urine Culture, Received Pending Result Diagram: 02/27/1731402/27/17314 Microbiology 2 sets of blood cultures drawn at [facility]. Blood cultures grew E. Coli X-Rays, CTs and MRIs CT at [facility] showed left hydronephrosis and UVJ stone. Assessment & Plan Alexia Jade is 76-year-old female with past medical history significant for hypertension, hypothyroid, and asthma who was transferred from [facility] due for surgical intervention for left UVJ stone seen on CT s/p Left JJ stent placement on 02/25/17. Hydronephrosis secondary to UVJ stone, present on admission, active. - Patient underwent urethral stent placement by Dr. Sylvester on 02/25/17 - Zosyn given at [facility] and continued. - Morphine when necessary pain. - Repeated CBC, CMP, and UA . WBC at [facility] was 11.1. -Urology, Dr. Sylvester was consulted and we appreciate her recommendations -Was decompressed effectively with JJ stent on 02/25/17 -Per urology, Stents remain at least 7-10 days to allow for passive ureteral dilation and UTI treatment before stone manipulation is undertaken for more proximal stones Sepsis, present on admission, active. - Criteria met at [facility] include: Temperature 100.2F, heart rate 1:30, and O2 sats 80% (Temperature greater than 38 her less than 36, heart rate is 90, respiratory rate greater than 20, PaCO2 less than 32, white blood cell count greater than 12,000 or less than 4000 or greater than 10% bands) - Source likely urological. - MAP 55-60 on presentation to [facility] and have improved with fluids. - Empiric antibiotics started including Zosyn. One dose given at [facility]. -Continue Zosyn - Blood cultures obtained at [facility] prior to antibiotics. Blood Cultures grew E. Coli -Re-ordered blood cultures while admitted at [facility]. No growth thus far -Urine cultures obtained and results pending. -Today, WBC decreased to 17.2, Lactic acid normalized, Procal decreased to 31.52 - Close hemodynamic monitoring. - Supplemental oxygen as needed. New-onset Paroxysmal Atrial Fibrillation, acute, ongoing. -Patient went into A. Fib with rates in 110s-140s on 02/26/17 but converted back into sinus rhythm and remained in NSR overnight -Gave one dose of metoprolol 2.5 mg IV with improvement in rate. -On 02/27/17, patient again went into A Fib. Started 60 mg po Cardizem with improvement in rate another 30mg was given later in the day. Reassess BP and give another 60 mg po Cardizem QHS if tolerated -TSH low normal at 0.457, Free T4 normal at 0.99 -CHADS VASC score 6. Consider anticoagulation Lactic Acidosis, present on admission, resolved. -Lactic Acid on Admit was 3.9 -Continued to trend Lactic acid q2 hrs which normalized to 1.6 -Patient is receiving NS at 75 cc/hr Electrolyte abnormalities, present on admission, under investigation. -Potassium, Magnesium and phosphorus were low -Replete electrolytes and recheck Acute kidney Injury, present on admission, ongoing. -likely secondary to kidney stone VS urosepsis -BUN/Cr 23/1.62 on admit -improved toda to BUN/ Cr 22/1.12 -patient on fluid hydration -avoid nephrotoxic drugs Stable chronic conditions Hypertension - Held home medication due to current hypotension - losartan 100 mg daily Asthma - Continue home regimen - Symbicort daily - Duonebs and albuterol when necessary -Ordered CXR and EKG for SOB Hypothyroidism - Continue home regimen - [place] Thyroid 30 mg -TSH low normal at 0.457, Free T4 normal at 0.99 GERD - Continue home regimen - omeprazole 20 mg twice a day PRN Medications - Acetaminophen as needed for mild pain/fever/headache - Bowel regimen as needed - Antiemetic as needed Code Status: Full Code Disposition: We will continue treating E. Coli infection with Zosyn. Will continue to watch for signs of improvement and will likely discharge to home in 1-2 days. Continue to manage and treat the patients new onset of afib. Once patient is rate controlled then she will be placed on anticoagulants and most likely be cardioverted at a later date if she does not convert back into normal sinus rhythm. Pain Evaluation: Adequate Pain Control GI Prophylaxis: Proton Pump Inhibitor VTE Prophylaxis: Sub-Q Heparin (Unfractionated) VTE Mechanical Devices: Intermittant Pneumatic CD Resuscitation Status: CPR: Attempt Resuscitation (patient has living will - daughter has a copy) Attending Statement The patient was seen and examined together with Dr. Merino on 02/27/17 and I have added additional information to the note above. Aviva Merino DO Feb 27, 2017 06:40 Penny Mclaughlin DO Feb 28, 2017 15:06 Stents remain at least 7-10 days to allow for passive ureteral dilation and UTI treatment before stone manipulation is undertaken for more proximal stones Have reviewed above with patient once again this evening Pain Evaluation: Adequate Pain Control GI Prophylaxis: Proton Pump Inhibitor VTE Prophylaxis: Sub-Q Heparin (Unfractionated) VTE Mechanical Devices: Intermittant Pneumatic CD Resuscitation Status: CPR: Attempt Resuscitation (patient has living will - daughter has a copy) Aviva Merino DO Feb 27, 2017 06:40
--- NOTE | 2017-02-27 17:33 | DRSVH ---
[facility] [address] [place] [address] Echocardiogram Report Name: JAMEE BENDER HStudy Date: 02/27/2017 Height: 64 in Hospital Exam Location: [facility] Weight: 221 lb Gender: Female BSA: 2.0 m2 : 1940 Age: 76 yrs BP: 111/71 mm Hg Reason For Study: Atrial fibrillation - paroxysmal Ordering Physician: Alfie MesaistPerformed By: Dinh West Referring Physician: FRANCISCO HODGE Interpretation Summary There is mild concentric left ventricular hypertrophy. Left ventricular systolic function is normal without focal wall motion abnormalities. The ejection fraction is estimated to be 60-65%. Diastolic function could not be accurately assessed due to atrial fibrillation. The right ventricle is normal size. Right ventricular systolic function is at the lower limits of normal. The right ventricular systolic pressure is estimated at 45 mmHg assuming a right atrial pressure of 8 mm Hg. The left atrium is mildly dilated. The right atrium is normal in size. There is mild to moderate mitral regurgitation. There is mild to moderate tricuspid regurgitation. There is no other significant valvular heart disease. The ascending aorta is mildly enlarged. Procedure: A two-dimensional transthoracic echocardiogram with color flow and Doppler was performed. The study quality was technically adequate. There is no prior echocardiogram noted for this patient. The patient was in atrial fibrillation with heart rates between 97-116 bpm during the exam. Left Ventricle: The left ventricle is normal in size. There is mild concentric left ventricular hypertrophy. Proximal septal thickening is noted. Left ventricular systolic function is normal without focal wall motion abnormalities. The ejection fraction is estimated to be 60-65%. Diastolic function could not be accurately assessed due to atrial fibrillation. Right Ventricle: The right ventricle is normal size. Right ventricular systolic function is at the lower limits of normal. Atria: The left atrium is mildly dilated. The right atrium is normal in size. The interatrial septum is intact with no evidence for an atrial septal defect. Mitral Valve: The mitral valve leaflets are slightly calcified. There is mild to moderate mitral regurgitation. Aortic Valve: The aortic valve is normal in structure and function. No aortic regurgitation is present. Tricuspid Valve: The tricuspid valve is not well visualized, but is grossly normal. There is mild to moderate tricuspid regurgitation. The right ventricular systolic pressure is estimated at 45 mmHg assuming a right atrial pressure of 8 mm Hg. Pulmonic Valve: The pulmonic valve leaflets are thin and pliable; valve motion is normal. There is a trace or physiologic amount of pulmonic regurgitation. There is no other significant valvular heart disease. Great Vessels: The aortic root is normal size. The ascending aorta is mildly enlarged. The pulmonary artery is normal size. The IVC is of normal diameter and collapses less than 50% with a sniff. This suggests a right atrial pressure of 8 mm Hg. Pericardium/ Pleura There is no pericardial effusion. There is no pleural effusion. MMode/2D Measurements & Calculations LVIDd: 4.6 cm LVIDs: 3.6 cm LA A2 area: 22.7 cm FS: 22.4 % LA A4 area: 22.3 cm EPSS: 0.63 cm LA length (vol): 5.3 cm IVSd: 1.3 cm LA vol: 81.4 ml LVPWd: 1.1 cm LA vol index: 39.9 ml/m IVC diam: 2.1 cm RA long axis: 5.0 cm LVOT diam: 1.9 cm RA area: 14.1 cm AoV Openin.5 cm RA vol: 34.0 ml Ao root diam: 2.9 cm RA : 16.7 ml/m2 asc Aorta Diam: 3.5 cm LV mckeon. diameter/BSA (cm/m^2): 2.3 LV sys. diameter/BSA (cm/m^2): 1.8 RVD1 (basal): 3.0 cm TAPSE: 1.0 cm Doppler Measurements & Calculations Ao V2 max: 131.4 cm/sec MV E max michel: 101.7 cm/sec Ao max P.9 mmHg Ao mean P.2 mmHg LVOT Max Michel: 90.4 cm/sec SANTOSH(I,D): 1.9 cm sev ratio: 0.67 TR max michel: 304.2 cm/sec Ao V2 mean: 99.0 cm/sec TR max P.1 mmHg Ao V2 VTI: 22.0 cm PA V2 max: 63.5 cm/sec PA mean P.83 mmHg SANTOSH(V,D): 1.9 cm2 LV V1 max P.3 mmHg PA V2 mean: 43.3 cm/sec LV V1 VTI: 14.7 cm PA pr(Accel): 22.4 mmHg SANTOSH indexed to BSA (cm^2/m^2): 0.91 Reading Physician:ERIC
--- NOTE | 2017-02-27 19:06 | NUR ---
Transfer to [facility] Patient transferred to 2029 from 2012 via wheelchair, amb in room with sba. Patient c/o lower quad abd pain with activity but declined pain meds. See vitals, tele A fib 130-150's at rest, MD aware and new orders given. Patient given Diltiazem and HR 90-110's. Patient oob amb to bathroom, sob with activity. Cheo putting out bloody uop with sediment. Taking diet fair. Echo done this afternoon.
[2017-02-28] VITALS (12 sets, daily range): BP systolic 137–161; BP diastolic 66–88; PULSE 85–126; RESP 16–21; O2SAT 94–97
[2017-02-28] MEDS: Sodium Chloride LOK Flush 10 mL Syringe IVFLUSH SCH ×3 (00:30→16:30)
[2017-02-28 03:58] LABS: Mean Corpuscular Hemoglobin 29.8 pg (27.0-35.0); Mean Corpuscular Volume 91.5 fL (81-100); Platelet Count 95 bil/L (150-400)
[2017-02-28] MEDS: Albuterol-Ipratropium 3 mL Inhalation Solution NEB SCH ×4 (03:59→20:24)
[2017-02-28 04:18] LABS: BASOPHILS % (AUTO) 0 % (0-3); EOSINOPHILS % (AUTO) 0 % (0-5); MONOCYTES % (AUTO) 1 % (4-12); NEUTROPHILS % (AUTO) 70 % (40-74)
[2017-02-28 04:38] LABS: Magnesium 1.8 mg/dL (1.6-2.6); Phosphorus 1.8 mg/dL (2.5-4.9)
[2017-02-28] MEDS: 0.9% Sodium Chloride 1,000 ML IV SCH ×2 (05:08→18:23)
--- NOTE | 2017-02-28 06:11 | NUR ---
Cardiac/Respiratory Pt continues in Afib with rates 80's to 115's. pt received 60mg PO Diltiazem around 2330. Pt has mild SOB with exertion and is currently on 2L NC. VSS and [place] patent and draining mckayla/red urine.
[2017-02-28] MEDS: Heparin 5,000 Unit/mL Inj SUBQ SCH ×2 (08:15→19:22)
[2017-02-28] MEDS: Fluticasone-Salmererol 250-50 Inhaler INHALATION SCH ×2 (08:16→20:30)
[2017-02-28] MEDS: Piperacillin-Tazo 3.375 Gm Inj 3.375 GM in Dextrose 5% Minibag Plus 50 ML IV SCH ×2 (08:24→18:18)
[2017-02-28] MEDS ORDERED: Diltiazem CD 180 mg ER24 Capsule PO ONE (08:30)
--- NOTE | 2017-02-28 10:15 | NUR ---
Social Work-readiness for discharge/ multidisciplinary rounds: Data:EMR reviewed. pt is on day 3 of hospitalization for kidney stones per H&P. Pt is not medically stable anticipate 1-2 more days Pt resides at home wit hher spouse. Pt to remain on IV abx at this time. Per RN notes, pt has been up independent in her room. No discharge needs identified. SW will continue to follow if needs arise. Assessment:Pt who is independent at baseline. Plan:Pt to discharge home when medically stable via POV. No discharge needs identified. SW will continue to follow if needs arise. BELINDA Smith
--- NOTE | 2017-02-28 11:20 | NUR ---
/Anxious Pt anxious at change of shift, states her has dementia, pt anxious to go home. Listened, encouraged pt. Pt acknowledged and understood reason for stay in hospital. MD's aware. Care continues.
[2017-02-28] MEDS ORDERED: Diltiazem 5 mg/mL 5 mL Inj IVPUSH ONE (11:25)
--- NOTE | 2017-02-28 12:48 | NUR ---
Diltiazem BP 139/77 HR 96 Administered 10 mg Diltiazem at approximately 1023, dialysis biomed technician notified. Second VS check at 1030 BP 127/71 HR 87, dialysis biomed technician notified. Pt tolerating. Administered remaining 5 mg at approximately 1035. Third VS check at approximately 1040 BP 125/79 HR 86. Pt states she feels calmer, family at bedside, pt eating lunch. technical system analyst notified when finished. Care continues.
--- NOTE | 2017-02-28 13:27 | NUR ---
NUTRITION ASSESSMENT: ASSESS: Pt is a 76yo F admitted for kidney stones and sepsis. She had stents placed 02/25. She continues to have hematuria. Urology is following. She is on a Heart Healthy diet with good PO of 50-75% and is having BM's. PMHX: hypothyroidism, asthma, GERD, HTN, TIA LABS: Reviewed. Cl 109, Glu 123, Ca 7.7, phos 1.8, Alb 2.7 MEDS: Reviewed. GI: BMx1 02/27 SKIN: no issues CURRENT WTS: 98kg, BMI 37.1kg/m2, admit wt 91kg, IBW: 54kg DIET: HH, PO 50-75% EST. NEEDS: BMI Kcals: 1960-2155kcal/day (20-22kcal/kg) Pro: 65-80g/day (1.2-1.5g/kg IBW) NUTRITION DIAGNOSIS: 1.) No nutrition diagnosis at this time NUTRITION INTERVENTION: 1.) Continue current diet and Encourage PO intake. PO is adequate at this time MONITOR / EVAL: PO, wt, GI, labs, POC, nutrition status. Will continue to monitor per moderate nutrition risk guidelines
--- NOTE | 2017-02-28 16:23 | PCM.PNMED ---
Subjective Date of Service Feb 28, 2017 Subjective Patient was seen and examined by me today. She states that she feels better overall. She continues to complain of left lower quadrant abdominal pain. In addition, her abdominal muscles feel sore with cough or exertion. In addition, she notes SOB with exertion. She denies headaches, visual changes, chest pain. nausea, vomiting and dysuria. Mark is draining pink urine, improved in color from yesterday. She continues to be in A. Fib with rates in 80s-120s Overnight, patient remained in A Fib with rates in 80s-120s. She was placed on 2L of Oxygen because she had mild SOB. No other acute events overnight. Exam Vital Signs Vital Sign - Last Date Time Temp Pulse Resp B/P Pulse Ox O2 Delivery O2 Flow Rate FiO2 02/28/17 04:46 103 02/28/17 04:00 20 95 Nasal Cannula 1.50 02/28/17 03:35 37.0 150/85 Intake and Output 02/27/17 02/27/17 02/28/17 Cumulative From/Thru 15:00 23:00 07:00 02/25/17 01:49 - 02/28/17 05:23 Intake Total 1325 ml 1361 ml 45997 ml Output Total 1350 ml 2900 ml 7110 ml Balance -25 ml -1539 ml 3389 ml Intake Oral 400 ml 400 ml 1890 ml IV Total 925 ml 961 ml 8609 ml Output Urine Total 1350 ml 2900 ml 7100 ml Estimated Blood Loss 10 ml # Bowel Movements 1 Exam General: Patient is lying comfortably on bed, AAOX3, not in acute distress, cooperative . 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0) Mean Corpuscular Hemoglobin Concent 32.6% (32.0-37.0) Red Cell Distribution Width 14.6% (12.3-15.4) Platelet Count 95bil/L (150-400) Neutrophils (%) (Auto) 70% (40-74) Lymphocytes (%) (Auto) 13% (14-46) Monocytes (%) (Auto) 1% (4-12) Eosinophils (%) (Auto) 0% (0-5) Basophils (%) (Auto) 0% (0-3) Band Neutrophils % 16% (1-5) Hematology Comments Sodium Level 143mEq/L (134-144) Potassium Level 3.9mEq/L (3.5-5.2) Chloride Level 109mEq/L (97-108) Carbon Dioxide Level 20mmol/L (18-29) Blood Urea Nitrogen 16mg/dL (8-27) Creatinine 0.58mg/dL (0.57-1.00) Estimat Glomerular Filtration Rate 145mL/min (>59) Glucose Level 123mg/dL (60-99) Lactic Acid Level 1.5mmol/L (0.4-2.0) Calcium Level 7.7mg/dL (8.5-10.1) Phosphorus Level 1.8mg/dL (2.5-4.9) Magnesium Level 1.8mg/dL (1.6-2.6) Total Bilirubin 0.4mg/dL (0.0-1.2) Aspartate Amino Transf (AST/SGOT) 22U/L (0-50) Alanine Aminotransferase (ALT/SGPT) 20U/L (0-32) Alkaline Phosphatase 50U/L (25-165) Total Protein 5.1g/dL (6.4-8.4) Albumin 2.7g/dL (3.4-5.0) Procalcitonin 12.22ng/mL (0.00-0.08) Microbiology 02/26/17 Blood Culture - Preliminary, Resulted Positive Blood Culture 02/26/17 KPC-Carbapenem Resistance (PCR) - Final, Resulted Not Detected 02/26/17 mecA-Methicillin Resis Gene (PCR) - Final, Resulted 02/26/17 Vancomycin A/B Resistance (PCR) - Final, Resulted 02/26/17 Enterococcus (PCR) - Final, Resulted Not Detected 02/26/17 Listeria DNA (PCR) - Final, Resulted Not Detected 02/26/17 Staphylococcus Identification (PCR) - Final, Resulted Not Detected 02/26/17 Staphylococcus aureus (PCR) - Final, Resulted Not Detected 02/26/17 Streptococcus species (PCR)(ARACELI) - Final, Resulted Not Detected 02/26/17 Streptococcus agalactiae (PCR)(ARACELI) - Final, Resulted Not Detected 02/26/17 Streptococcus pneumoniae (PCR)(ARACELI) - Final, Resulted Not Detected 02/26/17 Streptococcus pyogenes (PCR) - Final, Resulted Not Detected 02/26/17 Acinetobacter baumannii (PCR)(ARACELI) - Final, Resulted Not Detected 02/26/17 Enterobacteriaceae (PCR) - Final, Resulted Enterobacteriacae Group 02/26/17 Enterobacter cloacae (PCR)(ARACELI) - Final, Resulted Not Detected 02/26/17 Escherichia coli (PCR)(ARACELI) - Final, Resulted Escherichia Coli 02/26/17 Klebsiella oxytoca (PCR)(ARACELI) - Final, Resulted Not Detected 02/26/17 Klebsiella pneumoniae (PCR)(ARACELI) - Final, Resulted Not Detected 02/26/17 Proteus (PCR)(ARACELI) - Final, Resulted Not Detected 02/26/17 Serratia marcescens (PCR)(ARACELI) - Final, Resulted Not Detected 02/26/17 Haemophilis influenzae (PCR)(ARACELI) - Final, Resulted Not Detected 02/26/17 Neisseria meningitidis (PCR)(ARACELI) - Final, Resulted Not Detected 02/26/17 Pseudomonas aeruginosa (PCR)(ARACELI) - Final, Resulted Not Detected 02/26/17 Liv albicans (PCR)(ARACELI) - Final, Resulted Not Detected 02/26/17 Liv glabrata (PCR)(ARACELI) - Final, Resulted Not Detected 02/26/17 Liv krusei (PCR)(ARACELI) - Final, Resulted Not Detected 02/26/17 Liv parapsilosis (PCR)(ARACELI) - Final, Resulted Not Detected 02/26/17 Liv tropicalis (PCR)(ARACELI) - Final, Resulted 02/26/17 Urine Culture - Preliminary, Resulted Result Diagram: 02/28/17 0350 02/28/17 0350 Microbiology 2 sets of blood cultures drawn at [facility]. Blood cultures grew E. Coli ENTEROBACTERIACEAE PCR Final 02/27/17-2244 Organism 1 ENTEROBACTERIACAE GROUP ENTEROBACTERIACEAE PCR DETECTED ENT CLOACAE CMPLX PCR Final 02/27/17-2244 Not Detected ESCHERICHIA COLI PCR Final 02/27/17-2244 Organism 1 ESCHERICHIA COLI ESCHERICHIA COLI PCR DETECTED X-Rays, CTs and MRIs CT at [facility] showed left hydronephrosis and UVJ stone. Cardiac Echo Impressions There is mild concentric left ventricular hypertrophy. Left ventricular systolic function is normal without focal wall motion abnormalities. The ejection fraction is estimated to be 60-65%. Diastolic function could not be accurately assessed due to atrial fibrillation. The right ventricle is normal size. Right ventricular systolic function is at the lower limits of normal. The right ventricular systolic pressure is estimated at 45 mmHg assuming a right atrial pressure of 8 mm Hg. The left atrium is mildly dilated. The right atrium is normal in size. There is mild to moderate mitral regurgitation. There is mild to moderate tricuspid regurgitation. There is no other significant valvular heart disease. The ascending aorta is mildly enlarged. Assessment & Plan Alexia Jade is 76-year-old female with past medical history significant for hypertension, hypothyroid, and asthma who was transferred from [facility] due for surgical intervention for left UVJ stone seen on CT s/p Left JJ stent placement on 02/25/17. Hydronephrosis secondary to UVJ stone, present on admission, active. - Patient underwent urethral stent placement by Dr. Sylvseter on 02/25/17 - Zosyn given at [facility] and continued. - Morphine when necessary pain. - Repeated CBC, CMP, and UA . WBC at [facility] was 11.1. -Urology, Dr. Sylvester was consulted and we appreciate her recommendations -Was decompressed effectively with JJ stent on 02/25/17 -Per urology, Stents remain at least 7-10 days to allow for passive ureteral dilation and UTI treatment before stone manipulation is undertaken for more proximal stones -Per urology, mark can be removed once patient is ambulating and able to use the bathroom independently Sepsis, present on admission, active. - Criteria met at [facility] include: Temperature 100.2F, heart rate 1:30, and O2 sats 80% (Temperature greater than 38 her less than 36, heart rate is 90, respiratory rate greater than 20, PaCO2 less than 32, white blood cell count greater than 12,000 or less than 4000 or greater than 10% bands) - Source likely urological. - MAP 55-60 on presentation to [facility] and have improved with fluids. - Empiric antibiotics started including Zosyn. One dose given at [facility]. -Continue Zosyn - Blood cultures obtained at [facility] prior to antibiotics. Blood Cultures grew E. Coli -Re-ordered blood cultures while admitted at [facility]. Blood cultures grew E. Coli. Sensitivities and Susceptibilities pending -Urine cultures showed large occult blood -Today, WBC at 19.4, Lactic acid normalized, Procal decreased to 12.22 - Close hemodynamic monitoring. - Supplemental oxygen as needed. New-onset Paroxysmal Atrial Fibrillation, acute, ongoing. -Patient went into A. Fib with rates in 110s-140s on 02/26/17 but converted back into sinus rhythm and remained in NSR overnight -Gave one dose of metoprolol 2.5 mg IV with improvement in rate. -On 02/27/17, patient again went into A Fib. 90mg of cardizem given in the AM and 60mg given qHS however patient remained in the 100's-110's -Today 02/28/17, patient was started on diltiazem drip -TSH low normal at 0.457, Free T4 normal at 0.99 -CHADS VASC score 6. Consider anticoagulation if A. Fib does not convert back into sinus rhythm Lactic Acidosis, present on admission, resolved. -Lactic Acid on Admit was 3.9 currently 1.6 -Continued to trend Lactic acid with AM labs -Patient is receiving NS at 75 cc/hr Electrolyte abnormalities, present on admission, under investigation. -Potassium, Magnesium and phosphorus were low -Replete electrolytes and recheck Acute kidney Injury, present on admission, ongoing. -likely secondary to kidney stone VS urosepsis -BUN/Cr 23/1.62 on admit -improved toda to BUN/ Cr 22/1.12 -patient on fluid hydration -avoid nephrotoxic drugs Stable chronic conditions Hypertension - Held home medication due to current hypotension - losartan 100 mg daily Asthma - Continue home regimen - Symbicort daily - Duonebs and albuterol when necessary -Ordered CXR and EKG for SOB Hypothyroidism - Continue home regimen - [place] Thyroid 30 mg -TSH low normal at 0.457, Free T4 normal at 0.99 GERD - Continue home regimen - omeprazole 20 mg twice a day PRN Medications - Acetaminophen as needed for mild pain/fever/headache - Bowel regimen as needed - Antiemetic as needed Code Status: Full Code Disposition: We will continue treating E. Coli infection with Zosyn. Will continue to watch for signs of improvement and will likely discharge to home in 1-2 days. Pain Evaluation: Adequate Pain Control GI Prophylaxis: Proton Pump Inhibitor VTE Prophylaxis: Sub-Q Heparin (Unfractionated) VTE Mechanical Devices: Intermittant Pneumatic CD Resuscitation Status: CPR: Attempt Resuscitation (patient has living will - daughter has a copy) Attending Statement The patient was seen and examined together with Dr. Merino on 02/28/17 and I have added additional information to the note above. Aviva Merino DO Feb 28, 2017 06:57 Penny Mclaughlin DO Feb 28, 2017 17:22
--- NOTE | 2017-02-28 16:41 | PCM.PNSURG ---
Subjective Date of Service: Feb 28, 2017 Date of Service: Feb 28, 2017 Visit Information: Reason for Visit Kidney Stones, Sepsis Surgery/Surgery Date Post-Op Day # Date of Admission: Feb 25, 2017 at 21:58 Hospital Day # Objective Vital Sign- Last 8 Hours Date Time Temp Pulse Resp B/P Pulse Ox O2 Delivery O2 Flow Rate FiO2 02/28/17 16:16 36.6 95 16 150/88 95 Room Air 02/28/17 16:13 85 18 95 Room Air 02/28/17 11:54 36.9 96 18 139/77 95 Nasal Cannula 1.00 02/28/17 10:44 86 18 97 Nasal Cannula 1.00 Intake and Output- Last 8 Hour 02/28/17 Cumulative From/Thru 07:00 02/25/17 01:49 - 02/28/17 05:23 Intake Total 1361 ml 04995 ml Output Total 2900 ml 7110 ml Balance -1539 ml 3389 ml Intake Oral 400 ml 1890 ml IV Total 961 ml 8609 ml Output Urine Total 2900 ml 7100 ml Estimated Blood Loss 10 ml # Bowel Movements 1 Result Diagram: 02/28/17 0350 02/28/17 0350 Assessment & Plan Plan Impression Small distal stone- was still present and obstructing with contrast from [facility] still visible under fluoro before stent placement Now decompressed effectively with JJ stent- will stay until after d/c until time of stone treatment Urine re-cx from OR after deobstruction was sent but pt had had ceftriaxone at [facility] and a 2nd dose around time of stent placement after midnight early 02/26 Plan may expect urinary urgency/frequency with stent in place may expect some hematuria may have some flank discomfort with voiding due to reflux pressure from stent Pyridium up to tid may be helpful OAB medications such as Oxybutynin as well if needed Recommend medical supportive care with antibiotic choice per hospitalist service to cover at least presumed urine/bacterial source Stents remain at least 7-10 days to allow for passive ureteral dilation and UTI treatment before stone manipulation is undertaken for more proximal stones Pt currently has f/u Appointment [facility] [phone] FRIDAY 10:15 (Should arrive at least 20 min early as is new patient to clinic) If discharge planning or other issues should make this appointment impossible, can re-schedule next week. Have discussed with community engagement specialist. VTE Prophylaxis: Sub-Q Heparin (Unfractionated) Resuscitation Status: CPR: Attempt Resuscitation (patient has living will - daughter has a copy) Sari Sylvester MD Feb 28, 2017 16:40
[2017-02-28] MEDS: Diltiazem HCl 125 MG in 0.9% Sodium Chloride 100 ML, Pharmacy To Mix 1 EA IV SCH (17:06)
--- NOTE | 2017-02-28 17:25 | NUR ---
Diltiazem Drip\\ Addendum: 02/28/17 at 1728 by SILVANO BEACH RN Pt HR range 90-140, Diltiazem drip started at 5 mg/hr. veterinary technician instructor notified. Pt denies SOB, chest pain, lightheadedness. BP 154/68. 15 min VS check HR 120, BP 144/83 Care continues.
--- NOTE | 2017-02-28 18:37 | NUR ---
IV/Titrating Dilt IV blew at approximately 1800, IV therapy placed 2 new IVs. Diltiazem restarted, court monitor notified. Titrated Diltiazem to 7 mg at 1837. HR 111. Care continues.
[2017-02-28] MEDS ORDERED: Furosemide 10 mg/mL 4 mL Inj IVPUSH ONE (18:55)
--- NOTE | 2017-02-28 19:24 | NUR ---
Titrating Diltiazem/Lasix Titrated Diltiazem to 9 mg/hr at 1925, HR 115. BP 157/113, Lasix 40 mg IV push given. information tech notified. Pt denies chest pain, dizziness, or lightheadedness. Care continues.
[2017-03-01] VITALS (11 sets, daily range): BP systolic 105–170; BP diastolic 62–87; PULSE 75–132; RESP 17–25; O2SAT 95–98
[2017-03-01] MEDS: Sodium Chloride LOK Flush 10 mL Syringe IVFLUSH SCH ×3 (00:30→16:30)
[2017-03-01] MEDS: Piperacillin-Tazo 3.375 Gm Inj 3.375 GM in Dextrose 5% Minibag Plus 50 ML IV SCH ×3 (00:55→17:59)
[2017-03-01] MEDS: Albuterol-Ipratropium 3 mL Inhalation Solution NEB SCH ×4 (01:40→20:30)
[2017-03-01] MEDS: Heparin 5,000 Unit/mL Inj SUBQ SCH ×3 (01:40→18:03)
[2017-03-01 03:45] LABS: BASOPHILS % (AUTO) 0.3 % (0-3); MONOCYTES % (AUTO) 5.2 % (4-12); Mean Corpuscular Volume 89.8 fL (81-100); NEUTROPHILS % (AUTO) 81.3 % (40-74); Platelet Count 111 bil/L (150-400)
[2017-03-01] MEDS: Diltiazem HCl 125 MG in 0.9% Sodium Chloride 100 ML, Pharmacy To Mix 1 EA IV SCH (03:49)
[2017-03-01 04:47] LABS: Magnesium 1.5 mg/dL (1.6-2.6); Phosphorus 1.8 mg/dL (2.5-4.9)
[2017-03-01] MEDS ORDERED: Potassium Chloride 20 mEq SR Tablet PO ONE (05:40)
[2017-03-01] MEDS ORDERED: Magnesium Chloride SR 64 mg ER24 Tablet PO ONE (05:40)
--- NOTE | 2017-03-01 05:40 | NUR ---
Cardiac/UOP/Labs/O2 Pt continues in Afib. At start of shift rate 100s-110s, pt denied any symptoms. Overnight Dilt gtt titrated to 15mg/hr and pt then maintained goal of HR under 100. Pt weaned to 10mg/hr, tolerated w/out increase in HR. Pt now weaned to 5mg/hr, continuing to monitor HR. BP hypertensive at first but now systolic in 130s. Pt given Lasix prior to shift start per report, has put out well over 3L of pale urine, see I&Os for total number. AM labs show low K/Mag, pagemichelle JOY and awaiting replacement orders. Pt placed on 1.5L while asleep d/t occasional desats. Sats maintain WNL on RA while pt awake.
--- NOTE | 2017-03-01 06:31 | NUR ---
Fax from [facility] This morning [facility] faxed pt's blood culture result. Result positive for E. Coli as expected and addressed in prog note. Fax placed in patient chart. FYI page to .
[2017-03-01] MEDS ORDERED: KCl 40 mEq/D5W 500 mL 40 MEQ in IV Premix 1 EACH IV ONE (08:05)
[2017-03-01] MEDS: Diltiazem CD 180 mg ER24 Capsule PO SCH ×2 (08:10→08:30)
--- NOTE | 2017-03-01 08:11 | NUR ---
Diltiazem PO/IV Per Pharmacist Rick, administer Diltiazem 180 mg, continues Diltiazem Drip at 5 mg for one hour. At approximately 0915 titrate Dilt IV down to 2.5 mg. At approximately 1015 stop Dilt drip. Repeated to Pharmacist to confirm. jewelry technician notified. HR 97, BP 139/62. Care continues.
[2017-03-01] MEDS ORDERED: Diltiazem HCl 125 MG in 0.9% Sodium Chloride 100 ML, Pharmacy To Mix 1 EA IV SCH (08:50)
[2017-03-01] MEDS: Fluticasone-Salmererol 250-50 Inhaler INHALATION SCH ×2 (09:23→20:03)
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
[2017-03-01] MEDS ORDERED: Amiodarone 150 mg/100 mL D5W 150 MG in IV Premix 1 EACH IV ONE (12:40)
--- NOTE | 2017-03-01 14:03 | NUR ---
Amiodarone HR 105, BP 114/61, Administering Amiodarone 100 mL/hr in taxol filter tubing for [address] Banks order. Monitor techn notified. Pt denies chest pain, lightheadedness. Care continues.
--- NOTE | 2017-03-01 14:14 | CONS ---
[address] [address] CONSULTATION REPORT PATIENT: JAMEE BENDER : 1940 MR#: [id number] ADMIT: 02/25/2017 JOB ID: [id number] DATE OF SERVICE: 03/01/2017 CARDIOLOGY CONSULTATION: I have been asked by the hospitalist to see the patient due to new onset atrial fibrillation in the setting of E. coli sepsis. I have been asked to assist with her evaluation and management. HISTORY OF PRESENT ILLNESS: The patient is a pleasant 76-year-old female with no past history of cardiac dysrhythmias. She has a history of hypertension, treated hypothyroidism, and moderate obesity, and presents with E. coli sepsis secondary to a left ureteropelvic stone. She presented on the and underwent stenting of her left ureter on that date and has been treated appropriately with antibiotics with evidence of resolving sepsis syndrome. On the day after admission, February 26, she had an episode of transient atrial fibrillation but had recurrent atrial fibrillation that began on the afternoon of February 27. She was placed on a diltiazem drip for rate control and subsequently that has been changed to oral Diltiazem, which she received this morning at a dose of 180 mg. Telemetry demonstrates good rate control, with heart rates varying between 80 and 100 beats per minute, in atrial fibrillation. She is unaware of her atrial fibrillation. She is aware of symptoms of moderate dyspnea but her chart review was notable for an 8-10 kg fluid weight gain over the past over the first couple of days of her hospitalization as her sepsis syndrome was being treated. She received a dose of intravenous Lasix yesterday, diuresing considerably, and has continued to diurese today. Blood work is notable for moderate hypokalemia and hypomagnesemia, both of which received treatment today. Her hospital course was also notable for the fact that she had moderately significant hematuria after her stent placement and she has been notably thrombocytopenic since admission. She has received a baby aspirin daily. In addition, she has been receiving subcu heparin 5000 units every 8 hours. Home medications included losartan 100 mg daily for blood pressure. She takes Jean thyroid 30 mg daily for her hypothyroidism and omeprazole 20 mg twice daily for history of GERD. There is a reported history of TIA, although I have not seen any further information about that and did not talk with her about that at the time of my exam. She has a history of previous hysterectomy, cholecystectomy, tonsillectomy, and appendectomy. FAMILY HISTORY: Noncontributory. SOCIAL HISTORY: Notable for a remote history of smoking. PHYSICAL EXAMINATION: Demonstrates a pleasant obese 76-year-old female. She is 5 feet 4 inches tall and weighs 216 pounds with a body mass index of 34. She is in atrial fibrillation with a heart rate between 80 and 100 beats per minute with a blood pressure ranging between 105 this morning and 161 yesterday evening. Her cardiovascular examination is notable for moderate jugular venous distention, with the jugular venous pulse visible at the angle of the jaw with the patient at about 45 degrees. Lung cazares demonstrate fairly prominent rales, particularly at the right lower and right mid lung field, with expiratory wheezes noted in both anterior and posterior lung cazares. Cardiac auscultation is unremarkable other than her irregularly irregular rhythm, without significant cardiac murmurs. Abdomen is obese and otherwise not examined. Distal extremities are warm and well perfused, with normal distal pedal pulses and absence of edema. IMAGING: Chest x-ray report shows no significant abnormalities. EKG shows atrial fibrillation with no other significant findings. LABORATORY DATA: Notable for resolving sepsis syndrome picture and a TSH level which is borderline low at 0.457. IMPRESSION: The patient has atrial fibrillation in the setting of treated hypothyroidism and a history of hypertension, with an echocardiogram showing mild ventricular hypertrophy, all in the setting of E. coli sepsis. She does not have a prior history of cardiac dysrhythmias and I suspect this is simply stress related due to her acute illness and she is not likely at risk for recurrence. Anticoagulation I think is relatively contraindicated given the fact that she has got a stent in place in her ureter and has had hematuria and thrombocytopenia. RECOMMENDATION: My recommendation is to discontinue diltiazem and put her on intravenous amiodarone with the hope of converting her back to normal sinus rhythm, and hopefully the residual effect of the amiodarone will prevent recurrent atrial fibrillation during the remainder of her hospital stay. I think if she converts, she can be discharged when appropriate medically, and follow up with primary care. If she has recurrent problems with atrial fibrillation, then we can address that at that time. I appreciate seeing the patient in consultation and will follow up on her clinical course tomorrow.
[2017-03-01] MEDS ORDERED: IV Premix 1 EACH IV ONE ×3 (14:31→20:14)
[2017-03-01] MEDS ORDERED: Amiodarone 360 mg/200 mL D5W Premix IV ONE ×3 (14:31→20:14)
[2017-03-01] MEDS: Amiodarone 360 mg/200 mL D5W 360 MG, Filter, Taxol 14256-28 1 EACH in IV Premix 1 EACH IV SCH ×2 (14:52→20:17)
--- NOTE | 2017-03-01 16:23 | PCM.PNMED ---
Subjective Date of Service Mar 01, 2017 Subjective Patient was seen and examined by me today. This morning, she notes that she feels better overall. She denies headaches, visual changes, chest pain, palpitations, shortness of breath, nausea, vomiting, abdominal pain, and dysuria. She notes that she had loose stools. In addition, her Mark catheter was removed this morning. Patient was in atrial fibrillation with rate in the 70s to 90s on diltiazem drip. Overnight, patient continued to be in atrial fibrillation. She was on diltiazem drip and was titrated to maintain a goal heart rate less than 100. There were no other acute events overnight. Exam Vital Signs Vital Sign - Last Date Time Temp Pulse Resp B/P Pulse Ox O2 Delivery O2 Flow Rate FiO2 03/01/17 05:43 75 03/01/17 03:54 37.0 17 132/62 98 Nasal Cannula 1.50 Intake and Output 02/28/17 02/28/17 03/01/17 Cumulative From/Thru 15:00 23:00 07:00 02/25/17 01:49 - 03/01/17 06:17 Intake Total 2584 ml 497 ml 54598 ml Output Total 2700 ml 5000 ml 84720 ml Balance -116 ml -4503 ml -1230 ml Intake Oral 1600 ml 200 ml 3690 ml IV Total 984 ml 297 ml 9890 ml Output Urine Total 2700 ml 5000 ml 85539 ml Estimated Blood Loss 10 ml # Bowel Movements 1 Exam General: Patient is lying comfortably on bed, AAOX3, not in acute distress, cooperative . HEENT: head normocephalic and atraumatic, PERRLA, EOMI, no scleral icterus, noninjected conjunctiva Neck: neck supple, non-tender, no lymphadenopathy, trachea midline, no JVD CV: irregular rate and rhythm, radial pulses 2+ and equal bilaterally, no rubs, murmurs or gallops, no edema Lungs: Clear to auscultation bilaterally, no wheezes, rales or rhonchi, no increased work of breathing Abdomen: normoactive bowel sounds on 4Q, soft, non-distended, non-tender to palpation, no organomegally : mark has been removed Skin: warm and dry Musculoskeletal: beef trimmer strength of UE 5/5 bilaterally, full ROM bilaterally Neuro: Grossly neurologically intact, cranial nerves II through XII intact, no dyskinesia, dysmetria, or dysdiadochokinesia noted, sensation intact in extremities Psych: Normal mood and affect IVs and Medications Medications Reviewed: Medications were reviewed in detail Medications High risk medications include amiodarone drip Lab and Diagnostics Laboratory Tests Test 03/01/17 03:33 White Blood Count 14.4th/mm3 (3.8-10.1) Red Blood Count 4.11mil/mm3 (3.90-5.20) Hemoglobin 11.9g/dL (12.0-15.6) Hematocrit 36.9% (35.0-46.0) Mean Corpuscular Volume 89.8fL (81-100) Mean Corpuscular Hemoglobin 29.0pg (27.0-35.0) Mean Corpuscular Hemoglobin Concent 32.2% (32.0-37.0) Red Cell Distribution Width 14.1% (12.3-15.4) Platelet Count 111bil/L (150-400) Neutrophils (%) (Auto) 81.3% (40-74) Lymphocytes (%) (Auto) 11.9% (14-46) Monocytes (%) (Auto) 5.2% (4-12) Eosinophils (%) (Auto) 1.0% (0-5) Basophils (%) (Auto) 0.3% (0-3) Sodium Level 142mEq/L (134-144) Potassium Level 2.9mEq/L (3.5-5.2) Chloride Level 104mEq/L (97-108) Carbon Dioxide Level 27mmol/L (18-29) Blood Urea Nitrogen 11mg/dL (8-27) Creatinine 0.64mg/dL (0.57-1.00) Estimat Glomerular Filtration Rate 129mL/min (>59) Glucose Level 173mg/dL (60-99) Lactic Acid Level 1.8mmol/L (0.4-2.0) Calcium Level 8.6mg/dL (8.5-10.1) Phosphorus Level 1.8mg/dL (2.5-4.9) Magnesium Level 1.5mg/dL (1.6-2.6) Total Bilirubin 0.5mg/dL (0.0-1.2) Aspartate Amino Transf (AST/SGOT) 16U/L (0-50) Alanine Aminotransferase (ALT/SGPT) 18U/L (0-32) Alkaline Phosphatase 66U/L (25-165) Total Protein 6.2g/dL (6.4-8.4) Albumin 3.2g/dL (3.4-5.0) Procalcitonin 5.59ng/mL (0.00-0.08) Microbiology 02/26/17 Blood Culture - Preliminary, Resulted Positive Blood Culture 02/26/17 KPC-Carbapenem Resistance (PCR) - Final, Resulted Not Detected 02/26/17 mecA-Methicillin Resis Gene (PCR) - Final, Resulted 02/26/17 Vancomycin A/B Resistance (PCR) - Final, Resulted 02/26/17 Enterococcus (PCR) - Final, Resulted Not Detected 02/26/17 Listeria DNA (PCR) - Final, Resulted Not Detected 02/26/17 Staphylococcus Identification (PCR) - Final, Resulted Not Detected 02/26/17 Staphylococcus aureus (PCR) - Final, Resulted Not Detected 02/26/17 Streptococcus species (PCR)(ARACELI) - Final, Resulted Not Detected 02/26/17 Streptococcus agalactiae (PCR)(ARACELI) - Final, Resulted Not Detected 02/26/17 Streptococcus pneumoniae (PCR)(ARACELI) - Final, Resulted Not Detected 02/26/17 Streptococcus pyogenes (PCR) - Final, Resulted Not Detected 02/26/17 Acinetobacter baumannii (PCR)(ARACELI) - Final, Resulted Not Detected 02/26/17 Enterobacteriaceae (PCR) - Final, Resulted Enterobacteriacae Group 02/26/17 Enterobacter cloacae (PCR)(ARACELI) - Final, Resulted Not Detected 02/26/17 Escherichia coli (PCR)(ARACELI) - Final, Resulted Escherichia Coli 02/26/17 Klebsiella oxytoca (PCR)(ARACELI) - Final, Resulted Not Detected 02/26/17 Klebsiella pneumoniae (PCR)(ARACELI) - Final, Resulted Not Detected 02/26/17 Proteus (PCR)(ARACELI) - Final, Resulted Not Detected 02/26/17 Serratia marcescens (PCR)(ARACELI) - Final, Resulted Not Detected 02/26/17 Haemophilis influenzae (PCR)(ARACELI) - Final, Resulted Not Detected 02/26/17 Neisseria meningitidis (PCR)(ARACELI) - Final, Resulted Not Detected 02/26/17 Pseudomonas aeruginosa (PCR)(ARACELI) - Final, Resulted Not Detected 02/26/17 Liv albicans (PCR)(ARACELI) - Final, Resulted Not Detected 02/26/17 Liv glabrata (PCR)(ARACELI) - Final, Resulted Not Detected 02/26/17 Liv krusei (PCR)(ARACELI) - Final, Resulted Not Detected 02/26/17 Liv parapsilosis (PCR)(ARACELI) - Final, Resulted Not Detected 02/26/17 Liv tropicalis (PCR)(ARACELI) - Final, Resulted 02/26/17 Urine Culture - Preliminary, Resulted Result Diagram: 03/01/1733203/01/17332 Microbiology 2 sets of blood cultures drawn at [facility]. Blood cultures grew E. Coli ENTEROBACTERIACEAE PCR Final 02/27/17-2244 Organism 1 ENTEROBACTERIACAE GROUP ENTEROBACTERIACEAE PCR DETECTED ENT CLOACAE CMPLX PCR Final 02/27/17 Not Detected ESCHERICHIA COLI PCR Final 02/27/17-2244 Organism 1 ESCHERICHIA COLI ESCHERICHIA COLI PCR DETECTED X-Rays, CTs and MRIs CT at [facility] showed left hydronephrosis and UVJ stone. Cardiac Echo Impressions There is mild concentric left ventricular hypertrophy. Left ventricular systolic function is normal without focal wall motion abnormalities. The ejection fraction is estimated to be 60-65%. Diastolic function could not be accurately assessed due to atrial fibrillation. The right ventricle is normal size. Right ventricular systolic function is at the lower limits of normal. The right ventricular systolic pressure is estimated at 45 mmHg assuming a right atrial pressure of 8 mm Hg. The left atrium is mildly dilated. The right atrium is normal in size. There is mild to moderate mitral regurgitation. There is mild to moderate tricuspid regurgitation. There is no other significant valvular heart disease. The ascending aorta is mildly enlarged. Assessment & Plan Alexia Jade is 76-year-old female with past medical history significant for hypertension, hypothyroid, and asthma who was transferred from [facility] due for surgical intervention for left UVJ stone seen on CT s/p Left JJ stent placement on 02/25/17. Hydronephrosis secondary to UVJ stone, present on admission, active. - Patient underwent urethral stent placement by Dr. Sylvester on 02/25/17 - Zosyn given at [facility] and continued. - Morphine when necessary pain. - Repeated CBC, CMP, and UA . WBC at [facility] was 11.1. -Urology, Dr. Sylvester was consulted and we appreciate her recommendations -Was decompressed effectively with JJ stent on 02/25/17 -Per urology, Stents remain at least 7-10 days to allow for passive ureteral dilation and UTI treatment before stone manipulation is undertaken for more proximal stones -Mark was removed this morning without complications Sepsis, present on admission, active. - Criteria met at [facility] include: Temperature 100.2F, heart rate 1:30, and O2 sats 80% (Temperature greater than 38 her less than 36, heart rate is 90, respiratory rate greater than 20, PaCO2 less than 32, white blood cell count greater than 12,000 or less than 4000 or greater than 10% bands) - Source likely urological. - MAP 55-60 on presentation to [facility] and have improved with fluids. - Empiric antibiotics started including Zosyn. One dose given at [facility]. -Continue Zosyn - Blood cultures obtained at [facility] prior to antibiotics. Blood Cultures grew E. Coli -Re-ordered blood cultures while admitted at [facility]. Blood cultures grew E. Coli sensitive to Zosyn. Patient can be discharged home with ciprofloxacin -Urine cultures showed large occult blood -Today, WBC at 14.4, Lactic acid normalized, Procal decreased to 5.59 - Close hemodynamic monitoring. - Supplemental oxygen as needed. New-onset Paroxysmal Atrial Fibrillation, acute, ongoing. -Patient went into A. Fib with rates in 110s-140s on 02/26/17 but converted back into sinus rhythm and remained in NSR overnight -Gave one dose of metoprolol 2.5 mg IV with improvement in rate. -On 02/27/17, patient again went into A Fib. 90mg of cardizem given in the AM and 60mg given qHS however patient remained in the 100's-110's -On 02/28/17, patient was started on diltiazem drip. Her rate was controlled in 70s-90s and she was transitioned to oral diltiazem. -Cardiology, Dr. Banks was consulted and case discussed today. He believes that this is likely stress related due to acute illness and not at risk for recurrence -He started patient on amiodarone drip with hopes of converting patient to NSR. -TSH low normal at 0.457, Free T4 normal at 0.99 -CHADS VASC score 6. Consider anticoagulation if A. Fib does not convert back into sinus rhythm. However, anticoagulation may be contraindicated given her ureteral stent and hematuria Lactic Acidosis, present on admission, resolved. -Lactic Acid on Admit was 3.9 currently 1.8 -Continued to trend Lactic acid with AM labs Electrolyte abnormalities, present on admission, resolving. -Potassium, Magnesium and phosphorus were low on admission -Replete electrolytes and recheck as needed Acute kidney Injury, present on admission, resolved -likely secondary to kidney stone VS urosepsis -BUN/Cr 23/1.62 on admit -normalized today to 11/0.64 -patient was on IV fluid hydration. that has been discontinued -avoid nephrotoxic drugs Stable chronic conditions Hypertension - Held home medication due to current hypotension - losartan 100 mg daily Asthma - Continue home regimen - Symbicort daily - Duonebs and albuterol when necessary -CXR unremarkable -EKG showed A fib Hypothyroidism - Continue home regimen - Coggon Thyroid 30 mg -TSH low normal at 0.457, Free T4 normal at 0.99 GERD - Continue home regimen - omeprazole 20 mg twice a day PRN Medications - Acetaminophen as needed for mild pain/fever/headache - Bowel regimen as needed - Antiemetic as needed Code Status: Full Code Disposition: We will continue treating E. Coli infection with Zosyn. Given sensitivities, patient can likely discharge to home with Ciprofloxacin. She has been started on an amiodarone drip. She can likely discharge to home tomorrow when she converts to NSR. Pain Evaluation: Adequate Pain Control GI Prophylaxis: Proton Pump Inhibitor VTE Prophylaxis: Sub-Q Heparin (Unfractionated) VTE Mechanical Devices: Intermittant Pneumatic CD Resuscitation Status: CPR: Attempt Resuscitation (patient has living will - daughter has a copy) Attending Statement The patient was seen and examined together with Dr. Merino on 03/01/17 and I have added additional information to the note above. Aviva Merino DO Mar 01, 2017 06:43 Penny Mclaughlin DO Mar 01, 2017 16:43
--- NOTE | 2017-03-01 16:31 | NUR ---
Amiodarone/Converted Amiodarone 360 mg at 33.33 mL/hr started at 1452, administered by Liz Charlton RN. Pt tolerating well. Pt converted to SR at 1554 per telemetry monitor. notified. Pt resting at this time. Care continues.
--- NOTE | 2017-03-01 22:25 | NUR ---
Coverted to Afib Pt in SR at start of shift, amiodarone gtt continued and was lowered to 0.5mg/min after 6 hrs of initial rate, as directed in order. At 2138 pt converted back to Afib, per traffic survey technician, rate reached 140s but did not sustain. Pt asleep at the time, when pt checked on, she denied any symptoms w/ rhythm change. Pt monitored and HR maintained 90s-110s, sometimes reaching 120s but not sustaining. notified. After review, MD Pagan called back and directed nursing to keep amiodarone at current 0.5mg/min rate and notify if increased HR. Ongoing care. Addendum: 03/02/17 at 0003 by ARCELIA ROA RN ECG ordered w/ rhythm change, page sent to w/ full ECG reading report. Appeared to be STach at the time, ECG in pt chart. Around time pt getting ECG and using BSC, HR sustained 130s-150s for a little over 10 minutes, pt stated she felt no symptoms with this. After that HR was back to 90s-120s range. notified. Addendum: 03/02/17 at 0005 by ARCELIA P MADDAX RN Pt currently SR 70s for a little over an hour. Addendum: 03/02/17 at 0118 by ARCELIA ROA RN reviewed ECG. Pt continues in SR. Appears to be resting comfortably.
[2017-03-02] MEDS ORDERED: 0.9% Sodium Chloride 250 ML ONE (00:12)
[2017-03-02] MEDS: Sodium Chloride LOK Flush 10 mL Syringe IVFLUSH SCH ×2 (00:30→08:08)
[2017-03-02] MEDS: Piperacillin-Tazo 3.375 Gm Inj 3.375 GM in Dextrose 5% Minibag Plus 50 ML IV SCH ×2 (00:58→10:18)
[2017-03-02] MEDS: Heparin 5,000 Unit/mL Inj SUBQ SCH ×2 (01:01→08:09)
[2017-03-02] MEDS: Albuterol-Ipratropium 3 mL Inhalation Solution NEB SCH ×3 (02:30→14:30)
[2017-03-02 03:54] VITALS: BP 142/68; PULSE 80; RESP 18; O2SAT 98
--- NOTE | 2017-03-02 03:55 | NUR ---
Patient refused her 0230 scheduled neb, Patient is no respiratory distress.
--- NOTE | 2017-03-02 04:46 | NUR ---
IV Infiltration W/ 399 reassessment pt's upper right arm IV site pink/slightly hardened. Pt denied any pain w/ infusion but was tender w/ palpation. Catheter DC'd intact and area outlined for monitoring. Pharmacy called and recommended icepack, which was applied. IV attempts x2 made by CCU JESSE Guo, unsuccessful. Amiodarone switched to other IV site, will leave message w/ IV therapy and inform pharmacy that IV ABO will be off schedule. Addendum: 03/02/17 at 0629 by ARCELIA ROA RN Site that infiltrated was where Amiodarone was running.
[2017-03-02 04:51] LABS: BASOPHILS % (AUTO) 0.6 % (0-3); EOSINOPHILS % (AUTO) 3.5 % (0-5); MONOCYTES % (AUTO) 10.1 % (4-12); Mean Corpuscular Hemoglobin 29.5 pg (27.0-35.0); NEUTROPHILS % (AUTO) 65.5 % (40-74); Platelet Count 129 bil/L (150-400)
[2017-03-02 05:32] LABS: Magnesium 1.8 mg/dL (1.6-2.6); Phosphorus 2.4 mg/dL (2.5-4.9)
[2017-03-02 06:15] VITALS: PULSE 84
[2017-03-02 07:45] VITALS: PULSE 78; RESP 18; O2SAT 96
[2017-03-02 07:59] VITALS: BP 179/68; PULSE 83; RESP 20; O2SAT 97
[2017-03-02] MEDS ORDERED: Amiodarone 360 mg/200 mL D5W Premix IV ONE (08:00)
[2017-03-02] MEDS ORDERED: IV Premix 1 EACH IV ONE (08:00)
[2017-03-02] MEDS: Fluticasone-Salmererol 250-50 Inhaler INHALATION SCH (08:07)
[2017-03-02] MEDS: Amiodarone 360 mg/200 mL D5W 360 MG, Filter, Taxol 14256-28 1 EACH in IV Premix 1 EACH IV SCH (08:07)
--- NOTE | 2017-03-02 08:20 | NUR ---
Weight/SOB Pt states her baseline wt is 196 lbs, pt concerned about wt gain in hospital, pt states she has not been eating like usual. Pt wt now 92.5 kg. Pt states SOB is worsening on ambulation. Encouraged use of call light for SBA when ambulating. notified. Care continues.
--- NOTE | 2017-03-02 10:23 | NUR ---
IV/ABX Pt IV leaking, IV therapy placed new IV in right wrist. Zosyn 12.5 mg IV delayed start. Start time, 1024. Care continues.
[2017-03-02 13:01] VITALS: BP 168/70; RESP 20; O2SAT 96
[2017-03-02] MEDS ORDERED: CIPR-198 PO (14:03)
[2017-03-02] MEDS ORDERED: AMIO400T4 PO (14:05)
[2017-03-02] MEDS ORDERED: SACC250C PO (14:39)
--- NOTE | 2017-03-02 14:40 | PCM.DIMED ---
KARON TERRAZAS DO 03/02/17 1422: Discharge Instructions Date of Service Mar 02, 2017 Dates of Hospitalization Feb 25, 2017 at 21:58 Discharge Diagnosis Discharge Diagnosis Hydronephrosis secondary to UVJ stone, ongoing Sepsis, resolved New-onset Paroxysmal Atrial Fibrillation, stable Lactic Acidosis, resolved. Electrolyte abnormalities, resolved Acute kidney Injury, resolved Hypertension. Chronic Asthma. Chronic Hypothyroidism. Chronic Medication Instructions Additional med instructions Your being discharged with three new prescriptions, all of which have been provided to you on paper The first is a medication called cefdinir. This is an antibiotic that we know will be effective against the infection in your blood. Please take 300 mg of this medication by mouth 2 times a day, once in the morning once in the evening for the next 10 days. This will give you a total of 2 weeks of antibiotic treatment for a bacterial blood infection which most likely originated from your urinary tract infection. In addition to the ciprofloxacin I am prescribing a medication called Florastor , to prevent unwanted diarrhea from long-term antibiotic use. Please take 250 mg of this medication by mouth 2 times a day for the next 10 days. You are also being prescribed with a new medication called amiodarone. This is an antiarrhythmic medication. Please take 400 mg of this medication by mouth every day for the next week. Please continue to take all of your other regularly prescribed medications as indicated by your primary care provider. Diet Discharge Diet: Heart Healthy Activity Discharge Activity: Limited until seen by PCP Call your provider Call your provider for: Fever or Chills, Shortness of breath, Bleeding, Chest pain, Vomitting, Excessive diarrhea, Weakness (unilateral) Patient Instructions Patient Instructions You are being discharged to home with the new medications of cefdinir ( antibiotic), Florastor (probiotic) and amiodarone (anti-arrhythmic) to take for the next 7 days. If you feel any return of chest pressure, pain lightheadedness palpitations or you believe that your heart is gone back into atrial fibrillation please report immediately to the emergency department. At this point our cardiologists would like you to follow up with your primary care physician regarding this hospital stay in the next 7 days. If you have recurrent problems with atrial fibrillation a referral to cardiology will be the next step. Please follow up with Dr. Sylvester of urology, your appointment has been scheduled for this week. Your stents are to remain remain in place for at least 7-10 days to allow for passive ureteral dilation and UTI treatment before stone manipulation is undertaken for more proximal stones Follow-up plan Please follow-up with your primary care provider within the next 7 days. Please follow-up with Dr. Sylvester regarding your ureteral stents. Please keep your scheduled appointment at [facility] Friday at 10:15. Phone number is [phone]. Follow-up Provider: Gregoria Olmstead MD Follow-up with PCP in: 1 week Provider: Sari Sylvester MD Follow-up in: 1 week Penny Mclaughlin DO 03/02/17 1629: Discharge Instructions Medication Instructions Additional med instructions Your being discharged with three new prescriptions, all of which have been provided to you on paper The first is a medication called cefdinir. This is an antibiotic that we know will be effective against the infection in your blood. Please take 300 mg of this medication by mouth 2 times a day, once in the morning once in the evening for the next 10 days. This will give you a total of 2 weeks of antibiotic treatment for a bacterial blood infection which most likely originated from your urinary tract infection. In addition to the cifdinir I am prescribing a medication called Florastor, to prevent unwanted diarrhea from long-term antibiotic use. Please take 250 mg of this medication by mouth 2 times a day for the next 10 days. You are also being prescribed with a new medication called amiodarone. This is an antiarrhythmic medication. Please take 400 mg of this medication by mouth every day for the next week. Please continue to take all of your other regularly prescribed medications as indicated by your primary care provider. The patient is not taking cipro she is taking Cifdinir Patient Instructions Follow-up with PCP in: 1 week (in 1 week if an appointment has not been made please call to schedule an appointment) Follow-up in: 1 week (in 7-10 days if an appointment has not been made please call to schedule an appointment) Attending's Statement The patient was seen and examined together with Dr. Terrazas on 03/02/17 and I have added additional information to the note above. KARON TERRAZAS DO Mar 02, 2017 14:22 Penny Mclaughlin DO Mar 02, 2017 16:29
--- NOTE | 2017-03-02 15:09 | PCM.DC.MED ---
Discharge Summary Date of Service Mar 02, 2017 Dates of Hospitalization Date of Hospital Admission Feb 25, 2017 at 21:58 Date of Discharge: Mar 02, 2017 Providers: Admitting Physician: Charmaine Karimi DO Primary Care Physician: Gregoria Olmstead MD Attending Physician: Penny Mclaughlin DO Diagnosis at Time of Discharge Diagnosis at Time of Discharge Hydronephrosis secondary to UVJ stone, ongoing Sepsis, resolved New-onset Paroxysmal Atrial Fibrillation, stable Lactic Acidosis, resolved. Electrolyte abnormalities, resolved Acute kidney Injury, resolved Hypertension. Chronic Asthma. Chronic Hypothyroidism. Chronic Consultations Dr. Higinio Kaminski, urology Dr. Darren M.D., cardiology Procedures XRay, CTs & MRIs CT at [facility] showed left hydronephrosis and UVJ stone. X-RAY CHEST ONE VIEW, PORTABLE IMPRESSION: Limited portable chest examination, without a significant cardiopulmonary abnormality identified. Dictated by: Giuliano Conner M.D. on 02/26/2017 Cardiac Echo Impression There is mild concentric left ventricular hypertrophy. Left ventricular systolic function is normal without focal wall motion abnormalities. The ejection fraction is estimated to be 60-65%. Diastolic function could not be accurately assessed due to atrial fibrillation. The right ventricle is normal size. Right ventricular systolic function is at the lower limits of normal. The right ventricular systolic pressure is estimated at 45 mmHg assuming a right atrial pressure of 8 mm Hg. The left atrium is mildly dilated. The right atrium is normal in size. There is mild to moderate mitral regurgitation. There is mild to moderate tricuspid regurgitation. There is no other significant valvular heart disease. The ascending aorta is mildly enlarged. Invasive Procedures L JJ stent placement Other Diagnostics . Echocardiogram Report Interpretation Summary: There is mild concentric left ventricular hypertrophy. Left ventricular systolic function is normal without focal wall motion abnormalities. The ejection fraction is estimated to be 60-65%. Diastolic function could not be accurately assessed due to atrial fibrillation. The right ventricle is normal size. Right ventricular systolic function is at the lower limits of normal. The right ventricular systolic pressure is estimated at 45 mmHg assuming a right atrial pressure of 8 mm Hg. The left atrium is mildly dilated. The right atrium is normal in size. There is mild to moderate mitral regurgitation. There is mild to moderate tricuspid regurgitation. There is no other significant valvular heart disease. The ascending aorta is mildly enlarged. Brief History Alexia Jade is 76-year-old female with past medical history significant for hypertension, hypothyroid, and asthma who was transferred from [facility] due to possible need for surgical intervention for left UVJ stone seen on CT. Patient presented to [facility] morning of admit due to constant, sharp pain in her left lower quadrant which was worse with movement. She states the pain came on suddenly and she could not reposition herself to alleviate the pain. The pain radiated to her groin but not to the back or right side. She denies any dysuria, hematuria, or difficulty voiding. She denies history of kidney stones. Prior to this morning she was in her usual state of health. She denies any recent fever, chills, nausea, vomiting, change in bowel habits, shortness of breath, chest pain, or headache. No recent antibiotic use. At [facility] medical management was initially attempted but when the patient spiked a fever 102F with a heart rate of 130 and O2 sats dropping to 80 % there was concern that she would need surgical intervention and she was transferred to [facility]. Prior to arrival at [facility] she had blood cultures 2 drawn and antibiotics, Zosyn, given. Patient's white blood cell count at [facility] was 11.1. On presentation to [facility] vitals were temp 36.7, pulse 101, respiratory rate 18, blood pressure 110/47, satting 95% on 1 L nasal cannula. Hospital course: During hospital stay patient received left JJ stent. Blood cultures came back positive first from [facility] and then repeat positive blood cultures here at [facility] for gram-negative bacteria most likely from a urinary source as these also grew out Escherichia coli. Antibiotics were continued throughout hospital course and patient was discharged with additional antibiotics which were chosen based on the sensitivities from the blood cultures to complete a two-week course. Approximately 2 days after admission she spontaneously converted to a atrial fibrillation rhythm which was initially responsive to metoprolol, though converted again back to A. fib. She was then given calcium channel blockers which were successful in controlling her rate but not rythm. Patient then became refractory to this second medication course and was transitioned to amiodarone IV with conversion to regular rhythm. Cardiology consulted, it was their belief that this irregular rhythm was secondary to a stress reaction from her acute bacterial illness and she was not believed to be a risk for recurrence. She was discharged with oral amiodarone 400 mg daily and no anticoagulation prescribed at time of discharge. Prior to discharge patient received EKG, she had mild QT prolongation which was essentially unchanged from her admission though still high. Her antibiotic choice on discharge cefdinir reflected this in that she was not prescribed any addition QTc prolonging agents. Hospital Course Alexia Jade is 76-year-old female with past medical history significant for hypertension, hypothyroid, and asthma who was transferred from [facility] due for surgical intervention for left UVJ stone seen on CT s/p Left JJ stent placement on 02/25/17. Hydronephrosis secondary to UVJ stone, present on admission, improved by discharge. - Patient underwent JJ stent placement with successful decompression by Dr. Sylvester on 02/25/17, who followed patient throughout hospital stay -Per urology, Stents remain at least 7-10 days to allow for passive ureteral dilation and UTI treatment before stone manipulation is undertaken for more proximal stones - Zosyn given at [facility] and continued through hospital stay. At time of discharge antibiotic coverage changed to cefdinir secondary to sensitivities and QTc prolongation. Cefdinir. - Morphine given when necessary for pain. Sepsis, present on admission, resolved - Criteria met at [facility] include: Temperature 100.2F, heart rate 1:30, and O2 sats 80% (Temperature greater than 38 her less than 36, heart rate is 90, respiratory rate greater than 20, PaCO2 less than 32, white blood cell count greater than 12,000 or less than 4000 or greater than 10% bands) - Source likely urological. - MAP 55-60 on presentation to [facility], improved with fluids - Antibiotics as above - Blood cultures obtained at [facility] prior to antibiotics. Blood Cultures grew E. Coli, repeat blood cultures grew Escherichia coli at [facility] - The time of discharge white count had normalized, pro-calcitonin 3.5 from 73 on admission, afebrile. New-onset Paroxysmal Atrial Fibrillation, acute, under treatment -Patient went into A. Fib with rates in 110s-140s on 02/26/17 -During the course of hospital stay was given beta blockers then calcium channel blockers and finally amiodarone with successful rhythm control -Cardiology, Dr. Darren consult, recommendations were appreciated and followed. He believes that this was due to a stress reaction from her acute bacterial illness and is not a risk for recurrence, no anticoagulation indicated at time of discharge -Amiodarone drip transitioned to oral by time of discharge -TSH low normal at 0.457, Free T4 normal at 0.99 Lactic Acidosis, present on admission, resolved. -Lactic Acid on Admit was 3.9. 1.3 at time of discharge Electrolyte abnormalities, present on admission, resolving. -Potassium, Magnesium and phosphorus were low on admission -Repleted electrolytes as needed throughout hospital stay Acute kidney Injury, present on admission, resolved -likely secondary to kidney stone VS urosepsis -BUN/Cr 23/1.62 on admit, 13/0.67 at time of discharge Stable chronic conditions Hypertension - Continue home antihypertensive at time of discharge Asthma - Continue home regimen - Symbicort daily - Duonebs and albuterol when necessary -CXR unremarkable Hypothyroidism -Continue home regimen [place] Thyroid 30 mg her hospital stay -TSH low normal at 0.457, Free T4 normal at 0.99 -The time of discharged she was not given her [place] Thyroid and given instructions to follow-up with her primary care provider regarding the necessity of its ongoing use GERD - Continued home regimen - omeprazole 20 mg twice a day Exam Vital Signs (Last) Date Time Temp Pulse Resp B/P Pulse Ox O2 Delivery O2 Flow Rate FiO2 03/02/17 13:01 36.8 20 168/70 96 Room Air 03/02/17 07:59 83 03/01/17 22:56 1.50 Exam General: Awake and alert lying up in hospital bed in no acute distress, well- developed, well-nourished, appropriately interactive HEENT: Normocephalic, atraumatic. Neck: Supple with full range of motion. Neck pain to palpation bilateral posterior trapezius area. No jugular venous distension. No thyromegaly. Cardiovascular: Regular rate and rhythm with no murmurs, rubs, or gallops appreciated Pulmonary: Clear to auscultation bilaterally with no crackles, wheezes, or rhonchi. Normal respiratory effort with no use of accessory muscles. Abdomen:Soft, nontender, nondistended. Extremities: No clubbing, cyanosis, edema Skin: Normal temperature, turgor, and texture Neurological: Cranial nerves grossly intact. Psychiatric: Normal mood and affect. Alert and oriented to person, place, and time. Test 02/25/17 23:36 02/25/17 23:40 02/26/17 02:28 02/26/17 10:34 Urine Color Yellow (YELLOW) Urine Appearance Clear (CLEAR,HAZY) Urine pH 5.0 (5.0-8.0) Urine Specific [place] 1.010 (1.003-1.035) Urine Protein Tracemg/dL (NEG,TRACE) Urine Glucose (UA) Negativemg/dL (NEGATIVE) Urine Ketones Negativemg/dL (NEGATIVE) Urine Occult Blood Large (NEGATIVE) Urine Nitrite Negative (NEGATIVE) Urine Bilirubin Negative (NEGATIVE) Urine Urobilinogen Normalmg/dL (NORMAL) Urine Leukocyte Esterase Negative (NEGATIVE) Urine RBC 3-10/hpf (0-2) Urine WBC 0-5/hpf (0-5) Urine Epithelial Cells Few/hpf (NONE-MOD) Urine Crystals None seen (NONE SEEN) Urine Bacteria Few/hpf (NONE-FEW) Urine Hyaline Casts None/lpf (NONE) Urine Granular Casts None seen (NONE SEEN) Urine Waxy Casts None seen (NONE SEEN) Urine Red Blood Cell Casts None seen (NONE SEEN) Urine White Blood Cell Casts None seen (NONE SEEN) Urine Mucus None seen (None Seen) Urine Trichomonas None seen (NONE SEEN) Urine Yeast None (NONE SEEN) Urinalysis Comment None Urine Culture Reflexed Not indicated Hemoglobin A1c 5.8% (4.8-5.6) Troponin T 0.010ug/L (0.0-0.011) Metamyelocytes % 1% (0-0) Thyroid Stimulating Hormone (TSH) 0.457uIU/mL (0.450-4.500) Free Thyroxine 0.99ng/dL (0.82-1.77) Free Triiodothyronine 1.8pg/mL (2.0-4.4) Test 02/27/17 03:15 02/28/17 03:50 03/02/17 04:40 Myelocytes % 3% (0-0) Band Neutrophils % 16% (1-5) Hematology Comments White Blood Count 9.0th/mm3 (3.8-10.1) Red Blood Count 4.00mil/mm3 (3.90-5.20) Hemoglobin 11.8g/dL (12.0-15.6) Hematocrit 36.0% (35.0-46.0) Mean Corpuscular Volume 90.0fL (81-100) Mean Corpuscular Hemoglobin 29.5pg (27.0-35.0) Mean Corpuscular Hemoglobin Concent 32.8% (32.0-37.0) Red Cell Distribution Width 13.8% (12.3-15.4) Platelet Count 129bil/L (150-400) Neutrophils (%) (Auto) 65.5% (40-74) Lymphocytes (%) (Auto) 19.6% (14-46) Monocytes (%) (Auto) 10.1% (4-12) Eosinophils (%) (Auto) 3.5% (0-5) Basophils (%) (Auto) 0.6% (0-3) Sodium Level 141mEq/L (134-144) Potassium Level 3.6mEq/L (3.5-5.2) Chloride Level 102mEq/L (97-108) Carbon Dioxide Level 28mmol/L (18-29) Blood Urea Nitrogen 13mg/dL (8-27) Creatinine 0.67mg/dL (0.57-1.00) Estimat Glomerular Filtration Rate 123mL/min (>59) Glucose Level 124mg/dL (60-99) Lactic Acid Level 1.3mmol/L (0.4-2.0) Calcium Level 8.7mg/dL (8.5-10.1) Phosphorus Level 2.4mg/dL (2.5-4.9) Magnesium Level 1.8mg/dL (1.6-2.6) Total Bilirubin 0.4mg/dL (0.0-1.2) Aspartate Amino Transf (AST/SGOT) 19U/L (0-50) Alanine Aminotransferase (ALT/SGPT) 17U/L (0-32) Alkaline Phosphatase 72U/L (25-165) Total Protein 5.6g/dL (6.4-8.4) Albumin 3.2g/dL (3.4-5.0) Procalcitonin 3.52ng/mL (0.00-0.08) Microbiology Results 2 sets of blood cultures drawn at [facility]. Blood cultures grew E. Coli ENTEROBACTERIACEAE PCR Final 02/27/17 Organism 1 ENTEROBACTERIACAE GROUP ENTEROBACTERIACEAE PCR DETECTED ENT CLOACAE CMPLX PCR Final 02/27/17 Not Detected ESCHERICHIA COLI PCR Final 02/27/17 Organism 1 ESCHERICHIA COLI ESCHERICHIA COLI PCR DETECTED Discharge Medications Discharge Medications Amiodarone (Amiodarone) 400 Mg Tablet 400 MG PO DAILY Prescribed by: KARON TERRAZAS DO Aspirin (Aspirin) 81 Mg Tablet 81 MG PO DAILY (Reported) Budesonide/Formoterol 160-4.5 mcg Inh (Symbicort 160-4.5 mcg Inh) 120 Puff Inhaler 1 PUFF INHALATION BID (Reported) Cefdinir (Cefdinir) 300 Mg Capsule 300 MG PO BID Prescribed by: KARON TERRAZAS DO Cetirizine (Cetirizine) 5 Mg Tablet 10 MG AD DAILY (Reported) Cholecalciferol (Vitamin D3) (Vitamin D3) 5,000 Unit Capsule 5,000 UNIT PO DAILYWL (Reported) Omeprazole (Omeprazole) 20 Mg Capsule.dr 20 MG PO BID (Reported) Saccharomyces Boulardii (Florastor) 250 Mg Capsule 250 MG PO BID Prescribed by: KARON TERRAZAS DO Thyroid,Pork ([place] Thyroid) 30 Mg Tablet 30 MG PO DAILYAC Prescribed by: KARON TERRAZAS DO Vitamin B Complex & Vit C No.4 (Super B Complex) 150 Mg Tablet Unknown Dose PO DAILY (Reported) As needed Triamcinolone Acetonide (Triamcinolone Acetonide) 55 Mcg [place] 16.9 ML NS BID PRN PRN as needed (Reported) Additional med instructions Your being discharged with three new prescriptions, all of which have been provided to you on taper. The first is a medication called ciprofloxacin. This is an antibiotic that we know will be effective against the infection in your blood. Please take 500 mg of this medication by mouth 2 times a day, once in the morning once in the evening for the next 10 days. This will give you a total of 2 weeks of antibiotic treatment for a bacterial blood infection which most likely originated from your urinary tract infection. In addition to the ciprofloxacin I am prescribing a medication called Florastor , to prevent unwanted diarrhea from long-term antibiotic use. Please take 250 mg of this medication by mouth 2 times a day for the next 10 days. You are also being prescribed with a new medication called amiodarone. This is an antiarrhythmic medication. Please take 400 mg of this medication by mouth every day for the next week. I have stopped her medication [place] thyroid until you have discontinued taking amiodarone, please follow-up with your primary care physician regarding your thyroid function and the necessity of continuing this medication long-term Please continue to take all of your other regularly prescribed medications as indicated by your primary care provider. Followup Plan Disposition: Discharged to home in stable condition Follow-up plan Please follow-up with your primary care provider within the next 7 days. Discharge Diet: Heart Healthy Discharge Activity: Limited until seen by PCP Patient Instructions You are being discharged to home with the new medications of ciprofloxacin ( antibiotic), Florastor (probiotic) and amiodarone (anti-arrhythmic) to take for the next 7 days. If you feel any return of chest pressure, pain lightheadedness palpitations or you believe that your heart is gone back into atrial fibrillation please report immediately to the emergency department. At this point our cardiologists would like you to follow up with your primary care physician regarding this hospital stay in the next 7 days. If you have recurrent problems with atrial fibrillation a referral to cardiology will be the next step. Follow-up Provider: Gregoria Olmstead MD Follow-up with PCP in: 1 week Provider: Sari Sylvester MD Follow-up in: 1 week Time spent Time spent greater than 35 minutes educating patient about hospital course, diagnosis and follow-up plans. Attending Statement The patient was seen and examined together with Dr. Terrazas on 03/02/17 and I have added additional information to the note above. copies to: Sari Sylvester MD; Gregoria Olmstead MD, GILES A DO Mar 02, 2017 14:41 Penny Mclaughlin DO Mar 02, 2017 16:32
[2017-03-02] MEDS ORDERED: CEFD300C3 PO (15:36)
[2017-03-02] MEDS ORDERED: THYR30TA2 PO (16:07)
--- NOTE | 2017-03-02 16:39 | NUR ---
Discharge Pt discharged at approximately 1640 to home with family. Pt given educational material for Amiodaron, Cefdinir and Florastor, Afib, Kidney stones and Sepsis. Pt acknowledged and understood all information. IVs DC'd with catheter intact. Pt left with all personal belongings. Pt acknowledges appt this Friday with Dr Sylvester, to follow up with PCP in one week. Escorted by Eugene RN to the door via wheelchair.
== END 2017-03-02 16:45 | disposition home or self-care (01) | DRG 872 ==
LOC: PCC 21:58 → CCU 22:21 → PCC 22:50
PROVIDERS: ADMIT Internal Medicine; ATTEND Internal Medicine
PROC: 0T778DZ Dilation of Left Ureter with Intraluminal Device, Via Natural or Artificial Opening Endoscopic (ICD-10-PCS; principal; 2017-02-26 00:38)
DX: A41.51 Sepsis due to Escherichia coli [E. coli] (principal); N13.6 Pyonephrosis; E87.2 Acidosis; N17.9 Acute kidney failure, unspecified; I10 Essential (primary) hypertension; E03.9 Hypothyroidism, unspecified; Z87.891 Personal history of nicotine dependence; K21.9 Gastro-esophageal reflux disease without esophagitis; J45.909 Unspecified asthma, uncomplicated; I48.0 Paroxysmal atrial fibrillation; E87.6 Hypokalemia; E83.42 Hypomagnesemia; E83.39 Other disorders of phosphorus metabolism